=== PATIENT | female | born 1995 | race Caucasian/White ===

== ENCOUNTER 2018-12-04 18:17 | Emergency (ER) | payer MEDICAID, OTHER ==
[~2018-12-04] VITALS: Ht 175.3 cm; Wt 62.0 kg
[~2018-12-04 18:17] MED LIST: ARIP20TA4 PO; GUAI1TBM19 PO; PALI234D IM
[2018-12-04 18:24] VITALS: BP 110/47
--- NOTE | 2018-12-04 18:40 | NUR ---
Pt complains of "seasonal allergy symptoms": itchy eyes, stuffy nose and sore throat. Pt also requests note because she missed a court appointed appointment.
[2018-12-04] MEDS ORDERED: LORA10TA61 PO (18:42)
== END 2018-12-04 18:53 | disposition home or self-care (01) ==
LOC: ER 18:17
DX: J30.2 Other seasonal allergic rhinitis (principal); F15.90 Other stimulant use, unspecified, uncomplicated; Z88.2 Allergy status to sulfonamides; Z88.1 Allergy status to other antibiotic agents; Z88.8 Allergy status to other drugs, medicaments and biological substances; Z79.899 Other long term (current) drug therapy
CPT/HCPCS: 99282

== ENCOUNTER 2019-04-23 13:07 | Emergency (ER) | payer MEDICAID ==
[~2019-04-23] VITALS: Ht 175.3 cm; Wt 59.1 kg
[~2019-04-23 13:07] MED LIST changes: +LORA10TA61 PO
[2019-04-23 13:27] VITALS: BP 117/76
[2019-04-23] MEDS ORDERED: LORazepam 1 MG tablet PO ONE (13:55)
== END 2019-04-23 14:29 | disposition home or self-care (01) ==
LOC: ER 13:07
DX: F15.10 Other stimulant abuse, uncomplicated (principal); F31.9 Bipolar disorder, unspecified; F20.9 Schizophrenia, unspecified; Z88.2 Allergy status to sulfonamides; Z88.1 Allergy status to other antibiotic agents; Z88.8 Allergy status to other drugs, medicaments and biological substances; Z79.899 Other long term (current) drug therapy
CPT/HCPCS: 99284

== ENCOUNTER 2021-06-14 11:42 | Inpatient (IN) | payer MEDICAID ==
[~2021-06-14] VITALS: Ht 170.2 cm; Wt 70.1 kg
[2021-06-14 12:43] LABS: BASOPHILS % (AUTO) 0.3 % (0-1); EOSINOPHILS # (AUTO) 0.2 X10'3 (0-0.9); EOSINOPHILS % (AUTO) 2.3 % (0-6); HEMATOCRIT 38.4 % (35.0-45.0); HEMOGLOBIN 12.6 g/dl (12.0-16.0); LYMPHOCYTES # (AUTO) 2.7 X10'3 (1.1-4.8); LYMPHOCYTES % (AUTO) 29.3 % (21-51); MEAN CORPUSCULAR HEMOGLOBIN 28.4 PG (27.0-31.0); MEAN CORPUSCULAR HGB CONC 32.8 g/dL (33.0-36.5); MEAN CORPUSCULAR VOLUME 86.8 FL (78-98); MONOCYTES % (AUTO) 11.2 % (2-12); NEUTROPHILS # (AUTO) 5.3 X10'3 (1.8-7.7); NEUTROPHILS % (AUTO) 56.9 % (42-75); PLATELET COUNT 364 X10'3 (140-440); RED BLOOD COUNT 4.42 X10'6 (4.20-5.60); RED CELL DISTRIBUTION WIDTH 17.1 % (11.5-14.5); WHITE BLOOD COUNT 9.3 X10'3 (4.5-11.0)
[2021-06-14] MEDS ORDERED: RISP3TAB42 SL (12:47)
[2021-06-14] MEDS ORDERED: OLAN2.5T3 PO (12:47)
[2021-06-14 13:00] LABS: ALANINE AMINOTRANSFERASE 45 U/L (12-78); ALBUMIN 3.7 G/DL (3.4-5.0); ALBUMIN/GLOBULIN RATIO 0.9 (1.1-1.5); ALKALINE PHOSPHATASE 70 IU/L (46-116); ANION GAP 5 (8-16); ASPARTATE AMINO TRANSFERASE 26 U/L (10-37); BILIRUBIN,TOTAL 0.3 MG/DL (0.1-1.0); BLOOD UREA NITROGEN 15 MG/DL (7-18); BUN/CREATININE RATIO 24.6 (6.6-38.0); CALCIUM 8.4 MG/DL (8.5-10.1); CHLORIDE 107 MMOL/L (99-107); CREATININE 0.61 MG/DL (0.40-0.90); ETHANOL < 0.010 GM/DL (0.0-0.010); GLUCOSE 93 MG/DL (70-104); POTASSIUM 3.9 MMOL/L (3.5-5.1); SODIUM 140 MMOL/L (135-145); TOTAL CARBON DIOXIDE 27.8 MMOL/L (24-32); TOTAL PROTEIN 7.8 G/DL (6.4-8.2); eGFR > 90 ML/MIN
[2021-06-14 13:01] LABS: URINE HCG NEGATIVE (NEG)
[2021-06-14 13:09] LABS: URINE AMPHETAMINE SCREEN POSITIVE (Neg); URINE BARBITUATE SCREEN NEGATIVE (Neg); URINE BENZODIAZEPINES SCREEN NEGATIVE (Neg); URINE CANNABINOID SCREEN POSITIVE (Neg); URINE COCAINE SCREEN NEGATIVE (Neg); URINE METHADONE SCREEN NEGATIVE (Neg); URINE OPIATE SCREEN NEGATIVE (Neg); URINE PHENCYCLIDINE SCREEN NEGATIVE (Neg)
[2021-06-14 13:35] LABS: CLARITY,URINE SLIGHTLY CLOUDY (Clear); COLOR,URINE YELLOW (Yellow); GLUCOSE, URINE NEGATIVE (Neg); KETONES,URINE NEGATIVE (Neg); LEUKOCYTE ESTERASE ,URINE NEGATIVE (Neg); NITRITES, URINE NEGATIVE (Neg); OCCULT BLOOD,URINE NEGATIVE (Neg); PROTEIN,URINE NEGATIVE (Neg); UA COLLECTION TYPE CLN CATCH MIDSTREAM; UROBILINOGEN,URINE 0.2 E.U/dL (0.2-1.0)
--- NOTE | 2021-06-14 13:42 | NUR ---
Patient in bed laughing. Sister at bedside. Continue to monitor.
[2021-06-14 13:49] LABS: MUCUS STRANDS FEW /LPF (Neg); SQUAMOUS EPITHELIAL CELL,UR MANY /LPF (FEW)
[2021-06-14 13:51] LABS: BACTERIA,URINE 1+ /HPF (Neg); RBC,URINE 0-2 /HPF (0-2); WBC,URINE 0-4 /HPF (0-4)
[2021-06-14] MEDS ORDERED: OLANZapine 5mg rapidly disint. tablet PO ONE (15:15)
--- NOTE | 2021-06-14 15:28 | NUR ---
Packet sent to [facility]
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
--- NOTE | 2021-06-14 15:47 | NUR ---
Patient lives with grandmother who said who allergies are to Sulfa and Augmentin. GM states she has no allergies to anti-psychotics. Continue to monitor.
[2021-06-14] MEDS ORDERED: diphenhydrAMINE 50 mg/ml inj IM ONE (16:05)
[2021-06-14] MEDS ORDERED: LORazepam 2 mg/ml vial IM ONE (16:05)
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
--- NOTE | 2021-06-14 16:55 | NUR ---
Patient is now sleeping. No distress observed. Continue to monitor.
--- NOTE | 2021-06-14 17:54 | NUR ---
Patient sleeping. RN placed a warm blanket over patient. No distress observed. Continue to monitor.
--- NOTE | 2021-06-14 18:26 | NUR ---
PATIENT REMAINS SLEEPING QUIETLY. SHE HAS SELF REPOSITIONED IN BED. IN VIEW FROM NURSES STATION. FREQUENT ROUNDING FOR PATIENT SAFETY.
--- NOTE | 2021-06-14 18:30 | NUR ---
Note tremayne in [facility] - 06/14/21 at 2118 by [facility]. PATIENT IS SLEEPING, LOW FOWLERS POSITION IN BED. NO DISTRESS.
--- NOTE | 2021-06-14 20:10 | NUR ---
PATIENT HAS REPOSITIONED IN BED. SHE REMAINS SLEEPING.
[2021-06-14] MEDS: risperiDONE 2mg tablet PO SCH (21:00)
[2021-06-14] MEDS: OLANZapine 2.5MG tablet PO SCH (21:00)
--- NOTE | 2021-06-14 21:18 | NUR ---
PATIENT REMAINS SLEEPING QUIETLY. NO DISTRESS.
--- NOTE | 2021-06-14 21:55 | NUR ---
PATIENT IS SLEEPING. SHE HAS REPOSITIONED ONTO HER RIGHT SIDE.
--- NOTE | 2021-06-14 22:45 | NUR ---
PATIENT IS SLEEPING QUIETLY ON HER RIGHT SIDE.
--- NOTE | 2021-06-15 00:35 | NUR ---
PATIENT IS SLEEPING QUIETLY IN BED ON HER RIGHT SIDE.
--- NOTE | 2021-06-15 01:13 | NUR ---
PATIENT SLEEPING, OCCASIONAL SLEEP TALK.
--- NOTE | 2021-06-15 01:28 | NUR ---
PATIENT AWOKE. SHE IS EATING FOOD RAPIDLY. PATIENT REFUSES RX MEDS AND TELLS THIS AMBULATORY NURSE TO "GO AWAY." PATIENT STATES SHE WILL GO TO SLEEP WHEN DONE EATING.
--- NOTE | 2021-06-15 03:19 | NUR ---
PATIENT IS SLEEPING IN A SUPINE POSITION. IN VIEW FROM NURSES STATION. NO DISTRESS.
--- NOTE | 2021-06-15 06:24 | NUR ---
Patient sleeping on left side. No distress observed. Continue to monitor.
[2021-06-15] MEDS: risperiDONE 2mg tablet PO ONE ×2 (08:00→10:46)
[2021-06-15] MEDS: OLANZapine 5mg rapidly disint. tablet PO ONE ×2 (08:00→10:46)
--- NOTE | 2021-06-15 08:20 | NUR ---
Patient eating breakfast. No distress observed. Continue to monitor.
--- NOTE | 2021-06-15 08:27 | NUR ---
Patient got up to use the restroom and didn't have her pants on. RN advised patient to put her pants on before she walks to the BR. Patient called RN a "pb wheeler". Patient cussing all the way back to her room. Continue to monitor.
--- NOTE | 2021-06-15 09:07 | NUR ---
Patient refused meds. Continue to monitor.
--- NOTE | 2021-06-15 11:35 | NUR ---
RN gave patient crackers and milk. "Thank you for my milk you whore!"
--- NOTE | 2021-06-15 12:31 | NUR ---
Patient ambulatory up in room and asking "where are my shoes?". RN states "Your grandmother took them home." Patient responds "Shut up bitch!" Then patient walks to the BR. Continue to monitor.
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
--- NOTE | 2021-06-15 13:17 | NUR ---
Nobody in or near her room "Get out of the room slut!". Patient then pulls her covers over her head and is still. Continue to monitor.
--- NOTE | 2021-06-15 13:25 | NUR ---
Patient completely closed her curtain. RN opened the curtain and advised patient again that we have to be able to see her. Pt responds "You're a faggot you ugly elva!"
--- NOTE | 2021-06-15 15:04 | NUR ---
RN gave patient a cup of boullion, crackers, cheese and juice. RN warned patient that soup was hot. Patient sitting up and eating. No distress at this time. Continue to monitor.
--- NOTE | 2021-06-15 17:10 | NUR ---
Patient keeps getting up and walking to BR without her pants on. Security was called and patient immediately got dressed. Patient still cussing at staff. Continue to monitor.
--- NOTE | 2021-06-15 18:30 | NUR ---
Pt sitting up in bed mumbling to herself. Pt does not cooperate for 1:1 interview and calls RN a bitch.
--- NOTE | 2021-06-15 20:00 | NUR ---
Pt took HS medications without issue.
[2021-06-15] MEDS: risperiDONE 2mg tablet PO SCH (20:03)
[2021-06-15] MEDS: OLANZapine 2.5MG tablet PO SCH (20:04)
--- NOTE | 2021-06-15 20:30 | NUR ---
Pt up to use restroom.
--- NOTE | 2021-06-15 23:30 | NUR ---
Pt requests new brief which is given to her. She changes and gets back into bed.
--- NOTE | 2021-06-16 02:19 | NUR ---
Pt sleeps and stirs occasionally yelling random things like, "I hate Naeem"
--- NOTE | 2021-06-16 03:30 | NUR ---
Pt disposed of wet brief, new one given
--- NOTE | 2021-06-16 05:49 | NUR ---
Pt sleeping on L side, respirations WNL
--- NOTE | 2021-06-16 06:34 | NUR ---
Patient continues to sleep on left side. No distress observed. Continue to monitor.
--- NOTE | 2021-06-16 08:11 | NUR ---
Patient sitting up and eating breakfast. Then patient walked to the bathroom, gave a smile to the male tech and procedeed on. No distress observed. At this time. Continue to monitor.
--- NOTE | 2021-06-16 10:21 | NUR ---
Patient sleeping on right side. No distress observed. Continue to monitor.
--- NOTE | 2021-06-16 12:10 | NUR ---
Patient eating lunch. No distress observed. Continue to monitor.
--- NOTE | 2021-06-16 14:03 | NUR ---
Patient sleeping on her left side. No distress observed. Continue to monitor.
--- NOTE | 2021-06-16 19:26 | NUR ---
The patient has been pleasant but she is very disheveled with her dirty hair sticking up on end. She is disorganized. She ambulated to the restroom with no pants on and had to be redirected.
[2021-06-16] MEDS: risperiDONE 2mg tablet PO SCH (19:35)
[2021-06-16] MEDS: OLANZapine 2.5MG tablet PO SCH (19:35)
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
[2021-06-16] MEDS ORDERED: acetaminophen 325mg tablet PO PRN (22:55)
[2021-06-16] MEDS ORDERED: loperamide 2mg capsule PO PRN (22:55)
[2021-06-16] MEDS ORDERED: magnesium hydroxide 30ml (MOM) UD suspension PO PRN (22:55)
[2021-06-16] MEDS ORDERED: mag hydrox/Alum hydrox/simeth 30ml oral suspension PO PRN (22:55)
[2021-06-17 08:00] VITALS: BP 112/50
[2021-06-17 08:55] LABS: CHOL/HDL RATIO 2.8 (0.00-4.99); CHOLESTEROL 173 MG/DL (0-200); HDL CHOLESTEROL 62 MG/DL (35-60); LDL CHOLESTEROL 91 MG/DL (50-100); TRIGLYCERIDES 61 MG/DL (20-135)
[2021-06-17] MEDS ORDERED: OLANZAPINE 5 MG TABLET PO ONE (10:20)
[2021-06-17] MEDS ORDERED: OLANZapine 2.5MG tablet PO ONE (10:50)
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
[2021-06-17 19:00] VITALS: BP 127/76
[2021-06-17] MEDS: traZODone 50mg tablet PO SCH (19:33)
[2021-06-17] MEDS: risperiDONE 2mg tablet PO SCH (19:33)
[2021-06-17] MEDS: OLANZapine 2.5MG tablet PO SCH (19:35)
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
[2021-06-18 07:10] VITALS: BP 121/62
[2021-06-18] MEDS: OLANZAPINE 5 MG TABLET PO SCH (07:15)
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
[2021-06-18 19:20] VITALS: BP 133/83
[2021-06-18] MEDS: traZODone 50mg tablet PO SCH (19:47)
[2021-06-18] MEDS: OLANZapine 2.5MG tablet PO SCH (19:47)
[2021-06-18] MEDS: risperiDONE 2mg tablet PO SCH (19:48)
[2021-06-18] MEDS: acetaminophen 325mg tablet PO PRN (19:50)
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
[2021-06-19 08:05] VITALS: BP 93/45
[2021-06-19] MEDS: OLANZAPINE 5 MG TABLET PO SCH (08:16)
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
[2021-06-19 19:22] VITALS: BP 124/78
[2021-06-19] MEDS: traZODone 50mg tablet PO SCH (20:20)
[2021-06-19] MEDS: olanzapine 10mg tablet PO SCH (20:20)
[2021-06-19] MEDS: risperiDONE 2mg tablet PO SCH (20:20)
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
[2021-06-20 07:28] VITALS: BP 104/63
[2021-06-20] MEDS: OLANZAPINE 5 MG TABLET PO SCH (07:44)
--- NOTE | 2021-06-20 15:00 | NUR ---
Called Jean Paul's grandmother, Sheree (ph# [phone]), to gather information as Jean Paul was quite disorganized and delusional when typewriter mechanic spoke with her. Sheree reported Jean Paul has been living with her in [place] and she can return to her home upon discharge. Inquired about Jean Paul's [facility] status and she reported Jean Paul had been in a rehab in [place] for about 6 months about a year ago. Jean Paul did not switch her Medi-jovani back to [place] when she returned to [facility] [place]. Sheree reported Jean Paul used to go to [facility] and saw Dr Dong. She noted she had been trying to get Jean Paul to go to [facility] but she was unsuccessful. Called [facility] and requested records. Giselle, [facility], reported she saw that Jean Paul was a 1370 in 2019. VON León
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
--- NOTE | 2021-06-20 15:59 | NUR ---
5250 UPHELD FOR GD
[2021-06-20 20:05] VITALS: BP 111/75
[2021-06-20] MEDS: olanzapine 10mg tablet PO SCH (20:24)
[2021-06-20] MEDS: risperiDONE 2mg tablet PO SCH (20:24)
[2021-06-20] MEDS: traZODone 50mg tablet PO SCH (20:24)
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
[2021-06-21 07:00] VITALS: BP 130/64
[2021-06-21] MEDS: OLANZAPINE 5 MG TABLET PO SCH ×2 (08:17→21:27)
--- NOTE | 2021-06-21 10:15 | NUR ---
Initial: Pt admit for schizophrenia. Currently on a regular diet and eating well, documented with 75-100% PO intake meeting estimated nutrient needs. LBM 06/17, with PRN bowel care available. D/w dietary to send prunes and prune juice with next meal to assist with bowel regularity. Will continue to follow and monitor need for additional nutrition intervention. Recommendations: 1) Continue regular diet 2) Bowel care PRN 3) Weekly scaled weights Addendum: 06/21/21 at [address] Amended: Links added.
--- NOTE | 2021-06-21 15:38 | NUR ---
Group Art Tx, Continued: Patient was able to follow and complete the activities as directed. A few times pt. would loose her focus and begin loudly interacting with a peer. She was easily re-directed and was able to benefit from listening to others share, AEB her interest and comments. Patients artworks were expansive and colorful. Her writing was disorganized lacking a reality based content. Pt. was able to remain in group for the entire session. *Please refer to [facility] for a complete overview of todays session. Melissa Allison MA, CARE GIVER #[id number] [facility] Art Therapist Addendum: 06/21/21 at 1544 by Melissa Allison SS Amended: Links added.
[2021-06-21] MEDS: hydrOXYzine 25 MG tablet PO PRN (16:12)
[2021-06-21] MEDS: OLANZAPINE 5 MG TABLET PO PRN (16:13)
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
[2021-06-21 20:34] VITALS: BP 125/64
[2021-06-21] MEDS: traZODone 50mg tablet PO SCH (21:23)
[2021-06-21] MEDS: risperiDONE 0.5mg tablet PO SCH (21:27)
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
[2021-06-22 07:40] VITALS: BP 102/48
[2021-06-22] MEDS: risperiDONE 0.5mg tablet PO SCH ×2 (07:56→20:40)
[2021-06-22] MEDS: OLANZAPINE 5 MG TABLET PO SCH ×2 (07:56→20:40)
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
--- NOTE | 2021-06-22 17:31 | NUR ---
Group Art Tx, Continued: Patient entered the group room and stayed for the initial relaxation and directives for the activity. Patient quickly opted not to do group, seemingly aware that the activity was 'not for me". Patient was able to leave the session appropriately *Please refer to [facility] for a complete overview of todays session. Melissa Allison MA, ARMORED SERVICE TECHNICIAN #[id number] [facility] Art Therapist Addendum: 06/22/21 at 1732 by Melissa Allison SS Amended: Links added.
[2021-06-22 20:00] VITALS: BP 121/67
[2021-06-22] MEDS: traZODone 50mg tablet PO SCH (20:40)
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
[2021-06-23 07:35] VITALS: BP 93/50
[2021-06-23] MEDS: OLANZAPINE 5 MG TABLET PO SCH ×2 (07:45→22:11)
[2021-06-23] MEDS: risperiDONE 0.5mg tablet PO SCH ×2 (07:45→22:12)
[2021-06-23] MEDS: hydrOXYzine 25 MG tablet PO PRN (12:25)
[2021-06-23] MEDS: OLANZAPINE 5 MG TABLET PO PRN (12:25)
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
--- NOTE | 2021-06-23 15:14 | NUR ---
1:1 This below named therapist met with the patient at her request, to explore some ideas for leisure time activities. Patient was interested in doing some independent drawing and a coloring page of her choosing. Patient was provided with paper and art markers. It was noted, that patient lost her interest in her projects having a 5-10 minute attention span. Melissa Allison MA, [facility] #[id number] [facility] Art Therapist Addendum: 06/23/21 at 1516 by Melissa Allison SS Amended: Links added.
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
[2021-06-23 19:00] VITALS: BP 126/83
[2021-06-23] MEDS: traZODone 50mg tablet PO SCH (22:11)
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
[2021-06-24] MEDS: risperiDONE 0.5mg tablet PO SCH ×2 (07:29→20:38)
[2021-06-24] MEDS: OLANZAPINE 5 MG TABLET PO SCH ×2 (07:29→20:37)
[2021-06-24 07:34] VITALS: BP 118/70
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
[2021-06-24] MEDS: hydrOXYzine 25 MG tablet PO PRN (11:48)
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
[2021-06-24 20:08] VITALS: BP 135/78
[2021-06-24] MEDS: traZODone 50mg tablet PO SCH (20:38)
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
[2021-06-25 07:34] VITALS: BP 101/67
[2021-06-25] MEDS: OLANZAPINE 5 MG TABLET PO SCH ×2 (08:18→20:47)
[2021-06-25] MEDS: risperiDONE 0.5mg tablet PO SCH ×2 (08:18→20:47)
[2021-06-25] MEDS: hydrOXYzine 25 MG tablet PO PRN (14:47)
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
[2021-06-25 19:03] VITALS: BP 108/62
[2021-06-25] MEDS: traZODone 50mg tablet PO SCH (20:47)
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
[2021-06-26 07:27] VITALS: BP 91/47
[2021-06-26] MEDS: OLANZAPINE 5 MG TABLET PO SCH ×2 (07:53→20:57)
[2021-06-26] MEDS: risperiDONE 0.5mg tablet PO SCH ×3 (07:53→20:57)
--- NOTE | 2021-06-26 07:56 | NUR ---
[place] REFUSED AM DOSE OF RISPERIDONE. SHE STATES, "IT IS BLOOD I'M NOT A CARNIVORE.'" SHE WENT ON TO DESCRIBE THE COLOR IS RED AND ON AND ON WITH A "GROSS" DESCRIPTION.
[2021-06-26] MEDS: hydrOXYzine 25 MG tablet PO PRN ×2 (08:38→16:46)
[2021-06-26] MEDS: OLANZAPINE 5 MG TABLET PO PRN ×2 (08:46→16:46)
--- NOTE | 2021-06-26 11:52 | NUR ---
PT DECIDED TO TAKE THE RISPERIDONE. PER RAINER BERNAL OKAY TO GIVE NOW.
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
--- NOTE | 2021-06-26 16:45 | NUR ---
PT GIVEN ATARAX 50MG AND OLANZAPINE 5MG FOR PSYCHOSIS. PT IS HAVING VH OF VARIOUS FAMILY MEMBERS. SHE IS CALLING PEOPLE BY OTHER NAMES AND INSISTING STAFF ARE HER FAMILY MEMBERS. WHEN ASKED "WHERE ARE YOU?" SHE RESPONDE, "[facility]." THEN SHE SAID, "[facility]."
[2021-06-26 19:43] VITALS: BP 117/55
[2021-06-26] MEDS: traZODone 50mg tablet PO SCH (20:57)
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
[2021-06-27 08:00] VITALS: BP 137/54
[2021-06-27] MEDS: risperiDONE 0.5mg tablet PO SCH ×2 (08:10→20:26)
[2021-06-27] MEDS: OLANZAPINE 5 MG TABLET PO SCH ×2 (08:11→20:26)
--- NOTE | 2021-06-27 09:35 | NUR ---
Reassessment: Pt currently on regular diet and eating well, documented with ~100% PO intake meeting estimated nutrient needs. LBM 2, with PRN bowel care available. Will continue to follow and monitor need for nutrition intervention. Addendum: 06/27/21 at [address] Amended: Links added. Addendum: 06/27/21 at 0939 by Renetta Byrd Intern RD Reassessment: Pt currently on regular diet and eating well, documented with ~100% PO intake meeting estimated nutrient needs. LBM 2, with PRN bowel care available. Will continue to follow and monitor need for nutrition intervention. Recommendations: 1) Continue regular diet 2) Bowel care PRN 3) Weekly scaled weights Addendum: 06/27/21 at [address] CHARMAINE has reviewed and approves of above note.
[2021-06-27] MEDS: NICOTINE POLACRILEX 2 MG LOZENGE BC PRN (12:22)
[2021-06-27] MEDS: hydrOXYzine 25 MG tablet PO PRN (13:02)
--- NOTE | 2021-06-27 13:24 | NUR ---
Attempted to reach Jean Paul's grandmother, Sheree (ph# [phone]), to see if she was able to make any progress switching Jean Paul's Medi-jovani for her. Unable to leave a message. Will try again later. VON León
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
[2021-06-27 20:18] VITALS: BP 120/49
[2021-06-27] MEDS: traZODone 50mg tablet PO SCH (20:26)
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
[2021-06-28 08:00] VITALS: BP 100/53
[2021-06-28] MEDS: OLANZAPINE 5 MG TABLET PO SCH ×2 (08:32→20:16)
[2021-06-28] MEDS: risperiDONE 0.5mg tablet PO SCH ×3 (08:34→21:00)
[2021-06-28] MEDS: hydrOXYzine 25 MG tablet PO PRN ×2 (09:22→15:52)
[2021-06-28] MEDS: NICOTINE POLACRILEX 2 MG LOZENGE BC PRN (10:12)
--- NOTE | 2021-06-28 15:39 | NUR ---
1:1 This below named therapist, met briefly with his patient to provide an expressive art activity using two templates. The patient was asked to complete in preparation for a mural making activity tomorrow. Patient took the handouts putting them on her night stand. Patient had been sleeping and remained unmotivated to leave her room to do an activity. Will follow up 06/30/2021. Melissa Allison MA, COLOR WORKER #[id number] [facility] Art Therapist
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
[2021-06-28] MEDS: acetaminophen 325mg tablet PO PRN (17:49)
[2021-06-28 19:06] VITALS: BP 104/62
[2021-06-28] MEDS: traZODone 50mg tablet PO SCH (20:16)
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
[2021-06-29 07:32] VITALS: BP 132/76
[2021-06-29] MEDS: OLANZAPINE 5 MG TABLET PO SCH ×2 (08:30→20:00)
[2021-06-29] MEDS: risperiDONE 2mg tablet PO SCH (08:31)
[2021-06-29] MEDS: hydrOXYzine 25 MG tablet PO PRN ×2 (09:22→16:19)
[2021-06-29] MEDS: NICOTINE POLACRILEX 2 MG LOZENGE BC PRN (17:07)
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
[2021-06-29] MEDS: OLANZAPINE 5 MG TABLET PO PRN (18:08)
[2021-06-29] MEDS ORDERED: LORazepam 1 MG tablet PO ONE (18:25)
[2021-06-29] MEDS ORDERED: diphenhydrAMINE 25mg capsule PO ONE (18:25)
[2021-06-29] MEDS ORDERED: haloperidol 5mg tablet PO ONE (18:25)
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
[2021-06-29 20:00] VITALS: BP 139/85
[2021-06-29] MEDS: traZODone 50mg tablet PO SCH (20:00)
[2021-06-29] MEDS: risperiDONE 0.5mg tablet PO SCH (20:42)
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
[2021-06-30 08:00] VITALS: BP 109/60
[2021-06-30] MEDS: OLANZAPINE 5 MG TABLET PO SCH ×2 (08:10→20:28)
[2021-06-30] MEDS: risperiDONE 2mg tablet PO SCH (08:10)
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
[2021-06-30 19:00] VITALS: BP 132/71
[2021-06-30] MEDS: traZODone 50mg tablet PO SCH (20:27)
[2021-06-30] MEDS: risperiDONE 0.5mg tablet PO SCH (20:28)
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
--- NOTE | 2021-07-01 06:51 | NUR ---
Called Jean Paul's grandmother, Sheree (ph# [phone]) yesterday to inquire if she had been able to switch Jean Paul's Medi-jovani. She reported she still had not done so. She called back and left a message stating she had called [employer] [facility] [employer] and left messages trying to switch her Med[employer]-j[employer]. Ideally Jean Paul needs to call, however, she is not currently able to do so. VON León
[2021-07-01 07:09] VITALS: BP 128/78
[2021-07-01] MEDS: OLANZAPINE 5 MG TABLET PO SCH (07:59)
[2021-07-01] MEDS: risperiDONE 2mg tablet PO SCH (07:59)
[2021-07-01] MEDS: hydrOXYzine 25 MG tablet PO PRN (15:29)
[2021-07-01] MEDS: OLANZAPINE 5 MG TABLET PO PRN (16:09)
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
[2021-07-01] MEDS: acetaminophen 325mg tablet PO PRN (17:35)
[2021-07-01 20:00] VITALS: BP 132/79
[2021-07-01] MEDS ORDERED: OLANZAPINE 5 MG TABLET PO SCH (20:00)
[2021-07-01] MEDS: risperiDONE 0.5mg tablet PO SCH (20:29)
[2021-07-01] MEDS: traZODone 50mg tablet PO SCH (20:30)
--- NOTE | 2021-07-02 00:55 | NUR ---
Nursing Progress Note: Legal hold: 5250 Client on involuntary status for GD Report received from LEONID Ledbetter with use of SBAR Why they are here: Per the ER chart pt has a hx of bipolar schizophrenia and substance use disorder. ER toxicology was + methamphetamine and + cannabis. PT reportedly lives with her grandmother but is using drugs and was found naked in the street by family. She has a air intelligence officer who suggested she be brought to the hospital for help. Per notes pt was on Zyprexa and Risperdal but stopped taking these. Her grandmother reported that Jean Paul has not taken a shower or changed her clothes in 4 months and has been carrying around raw meat and thinks it is her baby. Assessment What has happened this shift: Patient lying in bed at shift change. 1:1 pt denies A/V H, pt talks in a soft voice with short answers and isolates to room for entire evening. Pt ate snack in room. Pt took meds at evening med pass w/o complications. Pt went to sleep shortly after. SI/HI: Denies A/VH: Denies Sleep:See sleep hours ADL's: Independent with prompting Group attendance: NA Were Meds taken: Yes, with prompting Any med S/E: None observed or reported Mental Status Exam Appearance: Casual in scrubs, showered today Eye contact: Good Behavior: tired Speech: Clear,soft spoken, short responses Mood: tired Affect: Animated, child-like Thought process: Extremely disorganized, flight of ideas, delusional, tangential Thought Content:sleep Cognition: A/O X 1 to self Insight: Poor Judgment: Poor Interventions PRN's used: none Therapeutic interventions: 1:1 assessment, therapeutic communication, active listening, medication administration/education/monitoring, provided simple, clear directions, behavior monitoring and intervention; frequent reality orientation, distraction, and redirection, positive reinforcement, and Q 15 minute safety checks. Restraints/seclusion/emergency medication: None Justification of Continued Inpatient Treatment: Pt continues to be gravely disabled. She is extremely disorganized and is not even sure who she is at times. She is delusional and impulsive. She needs further medication adjustment and monitoring in a safe and therapeutic environment.
[2021-07-02 07:45] VITALS: BP 97/70
[2021-07-02] MEDS: risperiDONE 2mg tablet PO SCH (08:13)
[2021-07-02] MEDS: hydrOXYzine 25 MG tablet PO PRN (10:16)
[2021-07-02] MEDS: OLANZAPINE 5 MG TABLET PO PRN (14:16)
[2021-07-02] MEDS ORDERED: benztropine 1mg tablet PO ONE (14:25)
[2021-07-02] MEDS: NICOTINE POLACRILEX 2 MG LOZENGE BC PRN (14:43)
[2021-07-02] MEDS ORDERED: cloNIDine 0.1 mg tablet PO ONE (15:50)
[2021-07-02] MEDS ORDERED: OLANZapine 5mg rapidly disint. tablet PO ONE (15:50)
[2021-07-02] MEDS ORDERED: propranolol 10mg tablet PO ONE (15:55)
[2021-07-02 16:04] VITALS: BP 147/78
--- NOTE | 2021-07-02 17:04 | NUR ---
Nursing Progress Note Legal hold: 5250 Client on involuntary status for GD Report received from RN with use of SBAR Why they are here: Per the ER chart pt has a hx of bipolar schizophrenia and substance use disorder. ER toxicology was + methamphetamine and + cannabis. PT reportedly lives with her grandmother but is using drugs and was found naked in the street by family. She has a digital marketing officer who suggested she be brought to the hospital for help. Per notes pt was on Zyprexa and Risperdal but stopped taking these. Her grandmother reported that Jean Paul has not taken a shower or changed her clothes in 4 months and has been carrying around raw meat and thinks it is her baby. Assessment What has happened this shift: Received Pt in bed sleeping w/o distress at the beginning of the shift. Pt woke and was cooperative with vitals and returned to sleep. Pt took AM meds w/o issue and ate breakfast in her room. Pt pleasant and cooperative for AM assessments and was reading the bible in bed. She continues to speak in a childish manner and state that she is 1 y/o. Jean Paul used the phone multiple times today. Pt increasingly asked and became intrusive about leaving the unit. Pt became restless and irritable in afternoon, wanting to leave and go home. Pt given PRN Atarax, Zyprexa and CogentinX1. Pt continued to be agitated, restless and impulsive. Vitals @1600 P-114, BP-147/78, T-98, R-16, O2-96%. PA ordered Zyprexa 5mg and Inderal 10mg. Pt has appeared to calm a little and even napped for 15 min. as of the writing of this note. SI/HI: Denies A/VH: Denies but appears to be responding to internal stimuli Sleep: Napped in AM ADL's: Independent Group attendance: NA Were Meds taken: Yes Any med S/E: None observed or reported Mental Status Exam Appearance: Casual in scrubs, showered today Eye contact: Good Behavior: Extremely disorganized, hypomanic Speech: Clear, audible, pressured, hyper verbal at times Mood: Elevated Affect: Animated, child-like Thought process: Extremely disorganized, delusional, tangential Thought Content: Wanting to go home Cognition: A/O X 1 Insight: Poor Judgment: Poor Interventions PRN's used: None Therapeutic interventions: 1:1 assessment, therapeutic communication, active listening, medication administration/education/monitoring, provided simple, clear directions, behavior monitoring and intervention; frequent reality orientation, distraction, and redirection, positive reinforcement, and Q 15 minute safety checks. Restraints/seclusion/emergency medication: None Justification of Continued Inpatient Treatment: Pt continues to be gravely disabled. She is extremely disorganized and is not even sure who she is at times. She is delusional and impulsive. She needs further medication adjustment and monitoring in a safe and therapeutic environment.
[2021-07-02 18:39] VITALS: BP 113/70
[2021-07-02] MEDS ORDERED: guanFACINE 1 mg tablet PO SCH (20:00)
[2021-07-02] MEDS: traZODone 50mg tablet PO SCH (20:02)
[2021-07-02] MEDS: risperiDONE 0.5mg tablet PO SCH (20:03)
[2021-07-02] MEDS: benztropine 1mg tablet PO SCH (20:03)
--- NOTE | 2021-07-03 01:28 | NUR ---
Nursing Progress Note Legal hold: 5250 Client on involuntary status for GD Report received from RN with use of SBAR Why they are here: Per the ER chart pt has a hx of bipolar schizophrenia and substance use disorder. ER toxicology was + methamphetamine and + cannabis. PT reportedly lives with her grandmother but is using drugs and was found naked in the street by family. She has a parcel post officer who suggested she be brought to the hospital for help. Per notes pt was on Zyprexa and Risperdal but stopped taking these. Her grandmother reported that Jean Paul has not taken a shower or changed her clothes in 4 months and has been carrying around raw meat and thinks it is her baby. Assessment What has happened this shift: Pt in room at beginning of shift change. Pt very lively today and communicative. Pt asked to paint her nails and put perfume on. Pt was reminded we don't have perfume and nail estonian will need to be supervised. Pt asked for water. Pt denies A/V H, Pt ate snack with cohorts in community room and talked with other pts in hallway at times. Pt took evening meds w/o complications and went to sleep shortly after. SI/HI: Denies A/VH: Denies but appears to be responding to internal stimuli Sleep: See sleep hours ADL's: Independent Group attendance: NA Were Meds taken: Yes Any med S/E: None observed or reported Mental Status Exam Appearance: Casual in scrubs, showered today Eye contact: Good Behavior: Extremely disorganized, hypomanic Speech: Clear, audible Mood: Elevated Affect: Animated, child-like Thought process: Extremely disorganized, delusional, tangential Thought Content: asking for things Cognition: A/O X 1 Insight: Poor Judgment: Poor Interventions PRN's used: None Therapeutic interventions: 1:1 assessment, therapeutic communication, active listening, medication administration/education/monitoring, provided simple, clear directions, behavior monitoring and intervention; frequent reality orientation, distraction, and redirection, positive reinforcement, and Q 15 minute safety checks. Restraints/seclusion/emergency medication: None Justification of Continued Inpatient Treatment: Pt continues to be gravely disabled. She is extremely disorganized and is not even sure who she is at times. She is delusional and impulsive. She needs further medication adjustment and monitoring in a safe and therapeutic environment.
[2021-07-03] MEDS: benztropine 1mg tablet PO SCH ×2 (07:48→20:45)
[2021-07-03] MEDS: risperiDONE 0.5mg tablet PO SCH ×2 (07:49→20:45)
[2021-07-03 08:00] VITALS: BP 110/53
[2021-07-03] MEDS: hydrOXYzine 25 MG tablet PO PRN (08:28)
--- NOTE | 2021-07-03 14:39 | NUR ---
Nursing Progress Note Legal hold: 5250 Client on involuntary status for GD Report received from RN with use of SBAR Why they are here: Per the ER chart pt has a hx of bipolar schizophrenia and substance use disorder. ER toxicology was + methamphetamine and + cannabis. PT reportedly lives with her grandmother but is using drugs and was found naked in the street by family. She has a chief strategy officer who suggested she be brought to the hospital for help. Per notes pt was on Zyprexa and Risperdal but stopped taking these. Her grandmother reported that Jean Paul has not taken a shower or changed her clothes in 4 months and has been carrying around raw meat and thinks it is her baby. Assessment What has happened this shift: Patient was awake at change of shift. Patient was pleasant but she was bored. Patient keeps on talking about going home. Patient is social with staff and peers. Patient does speak with a childlike voice. Patient still believes she is 1 years old. Patient denies suicidal. Patient denies audio/visual hallucinations. When patient is laying in bed it appears patient is responding to internal stimuli. Patient is being placed on a 5270 today. Patient was placed on Tenex yesterday and has been acting much more appropriately. No anger or outbursts today. SI/HI: Denies A/VH: Denies but appears to be responding to internal stimuli Sleep: Cat naps ADL's: Independent Group attendance: NA Were Meds taken: Yes Any med S/E: None observed or reported Mental Status Exam Appearance: Casual in scrubs Eye contact: Good Behavior: disorganized, tangential Speech: Clear, audible, Mood: Elevated Affect: Animated, child-like Thought process: disorganized, delusional, tangential Thought Content: Wanting to go home Cognition: A/O X 1 Insight: Poor Judgment: Poor Interventions PRN's used: None Therapeutic interventions: 1:1 assessment, therapeutic communication, active listening, medication administration/education/monitoring, provided simple, clear directions, behavior monitoring and intervention; frequent reality orientation, distraction, and redirection, positive reinforcement, and Q 15 minute safety checks. Restraints/seclusion/emergency medication: None Justification of Continued Inpatient Treatment: Pt continues to be gravely disabled. She is extremely disorganized and is not even sure who she is at times. She is delusional and impulsive. She needs further medication adjustment and monitoring in a safe and therapeutic environment.
[2021-07-03 19:00] VITALS: BP 89/60
[2021-07-03] MEDS: traZODone 50mg tablet PO SCH (20:45)
--- NOTE | 2021-07-04 01:23 | NUR ---
Nursing Progress Note Legal hold: 5250 Client on involuntary status for GD Report received from RN with use of SBAR Why they are here: Per the ER chart pt has a hx of bipolar schizophrenia and substance use disorder. ER toxicology was + methamphetamine and + cannabis. PT reportedly lives with her grandmother but is using drugs and was found naked in the street by family. She has a community chest officer who suggested she be brought to the hospital for help. Per notes pt was on Zyprexa and Risperdal but stopped taking these. Her grandmother reported that Jean Paul has not taken a shower or changed her clothes in 4 months and has been carrying around raw meat and thinks it is her baby. Assessment What has happened this shift: Patient in bed at shift change sitting on the edge. Patient is nice upon greeting and asks for a diaper. It is explained to pt that we do not wear diapers here that she will need to wear underwear and use the toilet. The pt agrees and goes back to her room. The pt asks for a snack an da sandwich and chips are provided for her. Pt take meds at evening med pass w/o complications. Later on pt noted sleeping nude in bed, pt asked to put on clothing and pt obliged donning a scrub top and went back to sleep SI/HI: Denies A/VH: Denies but appears to be responding to internal stimuli Sleep: Cat naps ADL's: Independent Group attendance: NA Were Meds taken: Yes Any med S/E: None observed or reported Mental Status Exam Appearance: Casual in scrubs Eye contact: Good Behavior: disorganized, tangential Speech: Clear, audible, Mood: Elevated Affect: Animated, child-like Thought process: disorganized, delusional, tangential Thought Content: Wanting to go home Cognition: A/O X 1 Insight: Poor Judgment: Poor Interventions PRN's used: None Therapeutic interventions: 1:1 assessment, therapeutic communication, active listening, medication administration/education/monitoring, provided simple, clear directions, behavior monitoring and intervention; frequent reality orientation, distraction, and redirection, positive reinforcement, and Q 15 minute safety checks. Restraints/seclusion/emergency medication: None Justification of Continued Inpatient Treatment: Pt continues to be gravely disabled. She is extremely disorganized and is not even sure who she is at times. She is delusional and impulsive. She needs further medication adjustment and monitoring in a safe and therapeutic environment.
[2021-07-04 08:00] VITALS: BP 104/62
[2021-07-04] MEDS: guanFACINE 1 mg tablet PO SCH ×2 (08:00→20:00)
[2021-07-04] MEDS ORDERED: guanFACINE 1 mg tablet PO SCH (08:00)
[2021-07-04] MEDS: risperiDONE 0.5mg tablet PO SCH ×2 (08:03→20:27)
[2021-07-04] MEDS: benztropine 1mg tablet PO SCH ×2 (08:03→20:28)
--- NOTE | 2021-07-04 08:05 | NUR ---
Med Note: Unable to give Tenex due to BP 104/62.
[2021-07-04 09:07] VITALS: BP 104/62
--- NOTE | 2021-07-04 12:57 | NUR ---
Nursing Progress Note Legal hold: 5250 Client on involuntary status for GD Report received from RN with use of SBAR Why they are here: Per the ER chart pt has a hx of bipolar schizophrenia and substance use disorder. ER toxicology was + methamphetamine and + cannabis. PT reportedly lives with her grandmother but is using drugs and was found naked in the street by family. She has a contracts officer who suggested she be brought to the hospital for help. Per notes pt was on Zyprexa and Risperdal but stopped taking these. Her grandmother reported that Jean Paul has not taken a shower or changed her clothes in 4 months and has been carrying around raw meat and thinks it is her baby. Assessment What has happened this shift: Patient was asleep at change of shift and up soon after. Patient calm and childlike voice. Patient denies suicidal/homicidal ideation. Patient is focused on going home and on getting a hot chocolate. Patient follows instructions but appears to forget the rules as she keeps coming into the nurses station. Patient is redirectable. Patient went to group today. Patient was unable to take her Tenex due to her systolic BP below 110. Patient asks for a diaper but staff keeps reminding patient that she is potty trained. No outbursts as of this writing. Patient talks about going home. SI/HI: Denies A/VH: Denies Sleep: Cat naps ADL's: Independent Group attendance: Yes Were Meds taken: Yes Any med S/E: None observed or reported Mental Status Exam Appearance: Casual in scrubs Eye contact: Good Behavior: disorganized Speech: Clear, audible, Mood: Elevated Affect: Animated, child-like Thought process: disorganized, delusional Thought Content: Wanting to go home Cognition: A/O X 1 Insight: Poor Judgment: Poor Interventions PRN's used: None Therapeutic interventions: 1:1 assessment, therapeutic communication, active listening, medication administration/education/monitoring, provided simple, clear directions, behavior monitoring and intervention; frequent reality orientation, distraction, and redirection, positive reinforcement, and Q 15 minute safety checks. Restraints/seclusion/emergency medication: None Justification of Continued Inpatient Treatment: Pt continues to be gravely disabled. She is extremely disorganized and is not even sure who she is at times. She is delusional and impulsive. She needs further medication adjustment and monitoring in a safe and therapeutic environment.
[2021-07-04] MEDS: hydrOXYzine 25 MG tablet PO PRN (14:01)
[2021-07-04] MEDS: OLANZAPINE 5 MG TABLET PO PRN (14:01)
--- NOTE | 2021-07-04 14:04 | NUR ---
[facility] Jean Paul currently has [facility] despite living in [facility]. Her grandmother (Sheree ph# [phone]) tried to call and change it to [facility] and was unable to do so. Met with Jean Paul to discuss her [facility] and why it needs to get changed to [facility] (for continued mental health treatment). She reported she wants it to stay with [facility]. She would not let internal communications writer assist her with changing to [place]. Called Sheree back to let her know internal communications writer was unsuccessful with assisting Jean Paul with changing her [facility]. She reported she will continue to try to do so. VON León
--- NOTE | 2021-07-04 14:09 | NUR ---
RN Addendum: Patient slightly agitated, cussing and speaking loudly. RN gave Zyprexa 10 mg and Atarax 50 mg. Patient took meds without incident. Continue to monitor.
--- NOTE | 2021-07-04 14:51 | NUR ---
Pt. attended group today. Today, being Valentin we did an creative mural with different [place] theme coloring pages and also utilized magazine cut outs to add to the mural. They were instructed to place the names of the people they love on the hearts if they wanted to and add whatever colors or words they wanted to add. Pt. engaged in the group well. She wrote down MONEY on her hearts and attempted to explain that she loves money. Her thought process was disorganized and she had a hard time staying on the topic. She would intrusive thoughts that she would blurt out that would be loosely associated with the topic at hand. She did pick out pictures she like and was able to to say why she like them appropriately. She was able to joke around a bit as well. Her demeanor was calm and pleasant. She was able to take redirection well as there were times she would interrupt when others were speaking. She shared a picture of a hold in the ground that she found interesting that she described as God's butt hole. This brought laughter to the group and she seemed to enjoy that. She stayed for the entirety of the group and received a ticket which she was excited about. Sonali Child LCSW
--- NOTE | 2021-07-04 15:43 | NUR ---
5270 UPHELD FOR GD
[2021-07-04 19:29] VITALS: BP 130/74
[2021-07-04] MEDS: traZODone 50mg tablet PO SCH (20:27)
[2021-07-04] MEDS: divalproex sod 250mg ER (24-hour) tablet PO SCH (21:00)
--- NOTE | 2021-07-05 01:20 | NUR ---
Nursing Progress Note Legal hold: 5250 Client on involuntary status for GD Report received from RN with use of SBAR Why they are here: Per the ER chart pt has a hx of bipolar schizophrenia and substance use disorder. ER toxicology was + methamphetamine and + cannabis. PT reportedly lives with her grandmother but is using drugs and was found naked in the street by family. She has a security officer supervisor who suggested she be brought to the hospital for help. Per notes pt was on Zyprexa and Risperdal but stopped taking these. Her grandmother reported that Jean Paul has not taken a shower or changed her clothes in 4 months and has been carrying around raw meat and thinks it is her baby. Assessment What has happened this shift: Pt walking in hallway at shift change. Pt asked for a diaper at beginning of shift , pt was reminded that she doesn't use diapers and needs to use the toilet. Pt went to room to lie down.Pt denies A/V H. Pt states that she had a good day and asked for chocolate. Pt asked for snack at snack time. Pt took evening meds w/o complaint. Pt was unable to take tannex due to SBP being under 110. Pt went to sleep shortly after. SI/HI: Denies A/VH: Denies Sleep: See sleep hours ADL's: Independent Group attendance: No group in the evenings Were Meds taken: Yes Any med S/E: None observed or reported Mental Status Exam Appearance: Casual in scrubs Eye contact: Good Behavior: disorganized Speech: Clear, audible, Mood: Elevated Affect: Animated, child-like Thought process: disorganized, delusional Thought Content: Wanting to go home Cognition: A/O X 1 Insight: Poor Judgment: Poor Interventions PRN's used: None Therapeutic interventions: 1:1 assessment, therapeutic communication, active listening, medication administration/education/monitoring, provided simple, clear directions, behavior monitoring and intervention; frequent reality orientation, distraction, and redirection, positive reinforcement, and Q 15 minute safety checks. Restraints/seclusion/emergency medication: None Justification of Continued Inpatient Treatment: Pt continues to be gravely disabled. She is extremely disorganized and is not even sure who she is at times. She is delusional and impulsive. She needs further medication adjustment and monitoring in a safe and therapeutic environment.
[2021-07-05 08:00] VITALS: BP 98/53
[2021-07-05] MEDS: guanFACINE 1 mg tablet PO SCH ×2 (08:00→20:17)
[2021-07-05] MEDS: risperiDONE 0.5mg tablet PO SCH ×2 (08:36→20:16)
[2021-07-05] MEDS: benztropine 1mg tablet PO SCH ×2 (08:36→20:17)
--- NOTE | 2021-07-05 08:37 | NUR ---
Pt. attended group today. Todays group was about the difference between Growth Mindset vs. Fixed Mindset. We learned about the differences and then discussed what aspect of developing a growth mindset they wanted to work on. Pt. came into the group snf through the group but joined right in. She shared things she wants to hold onto in her life are [employer] and a glue stick. Her thought content contains delusional content and disorganized thoughts. Her thoughts quickly will tangent into loose associations but she is amenable to redirection. Her demeanor is pleasant and calm. She appears to enjoys socializing with her peers. Sonali Child, ORAL HYGIENIST
--- NOTE | 2021-07-05 09:58 | NUR ---
Reassessment: Pt currently on regular diet and eating well, documented with ~100% PO intake meeting estimated nutrient needs. [facility] 06/30, with PRN bowel care available. Will continue to follow and monitor need for nutrition intervention. Recommendations: 1) Continue regular diet 2) Bowel care PRN 3) Weekly scaled weights Addendum: 07/05/21 at [address] Amended: Links added. Addendum: 07/05/21 at [address] I have reviewed assessment by social media intern
[2021-07-05] MEDS: hydrOXYzine 25 MG tablet PO PRN (10:02)
--- NOTE | 2021-07-05 17:19 | NUR ---
Nursing Progress Note Legal hold: 5270 Client on involuntary status for GD Report received from DOTTIE Gold with use of SBAR Why they are here: Per the ER chart pt has a hx of bipolar schizophrenia and substance use disorder. ER toxicology was + methamphetamine and + cannabis. PT reportedly lives with her grandmother but is using drugs and was found naked in the street by family. She has a program officer who suggested she be brought to the hospital for help. Per notes pt was on Zyprexa and Risperdal but stopped taking these. Her grandmother reported that Jean Paul has not taken a shower or changed her clothes in 4 months and has been carrying around raw meat and thinks it is her baby. What happened today: Assessment What has happened this shift: Received patient while she was sleeping in bed. Patient awoke at approximately 0735, and was talking to other peers. Patient reports Im feeling great, when asked how she was today. 1:1 Patient Assessment & Interview completed with patient. Patient took po AM medications that were ordered, with the exception of Tenex, which was held because her BP was low at 98/63. Patient took am prescribed medications, then requested Atarax at 1000 d/t increased anxiety at this time. Patient attended afternoon Group Meeting and ambulated frequently throughout the hallways greeting peers and making pleasant statements. Patient has had to be told many times today to stay out of other patient's rooms today. SI/HI: Denies A/VH: Denies Sleep: 9.50 hours ADL's: Independent, Showered Today. Group attendance: Did not attend AM Group Meeting. Attended Afternoon Group Meeting. Were Meds taken: Yes, without hesitation. Any med S/E: None observed or reported Mental Status Exam Appearance: Tall female with bangs in front and a shaved head in the back, with blue jeans & pink sweatshirt on. Eye contact: Good Behavior: Disorganized Speech: Clear, audible, Mood: Elevated Affect: Animated, child-like Thought process: Disorganized, Delusional Thought Content: Wanting to go home Cognition: A/O X 3 Insight: Poor Judgment: Poor Interventions PRN's used: Atarax at 10:00. Therapeutic interventions: 1:1 assessment, therapeutic communication, active listening, medication administration/education/monitoring, provided simple, clear directions, behavior monitoring and intervention; frequent reality orientation, distraction, and redirection, positive reinforcement, and Q 15 minute safety checks. Restraints/seclusion/emergency medication: None Justification of Continued Inpatient Treatment: Pt continues to be gravely disabled. She is extremely disorganized and is not even sure who she is at times. She is delusional and impulsive. She needs further medication adjustment and monitoring in a safe and therapeutic environment.
--- NOTE | 2021-07-05 17:40 | NUR ---
Group Art Tx. Continued: Patient was able to remain in group and participate for the entire session.There were times that the patient would make statements that were delusional in nature, however, she seemed to understand what she was saying and seemed content to be participating in the group. *Please refer to [employer] for a complete overview of todays session. Melissa Allison MA, LINUX NETWORK ENGINEER #[id number] [facility] Art Therapist Addendum: 07/05/21 at 1742 by Melissa Allison SS Amended: Links added.
[2021-07-05 19:29] VITALS: BP 125/77
[2021-07-05] MEDS: traZODone 50mg tablet PO SCH (20:17)
[2021-07-05] MEDS: divalproex sod 250mg ER (24-hour) tablet PO SCH (20:17)
--- NOTE | 2021-07-06 00:33 | NUR ---
Nursing Progress Note Legal hold: 5250 Client on involuntary status for GD Report received from RN with use of SBAR Why they are here: Per the ER chart pt has a hx of bipolar schizophrenia and substance use disorder. ER toxicology was + methamphetamine and + cannabis. PT reportedly lives with her grandmother but is using drugs and was found naked in the street by family. She has a loan service officer who suggested she be brought to the hospital for help. Per notes pt was on Zyprexa and Risperdal but stopped taking these. Her grandmother reported that Jean Paul has not taken a shower or changed her clothes in 4 months and has been carrying around raw meat and thinks it is her baby. Assessment What has happened this shift: Patient was seen at bedside for 1:1. Asked her what was with the other bed, "it's my Dads bed, Eddy." Any side effects to medicine? "What are SE? Like robbery, like being mean to my ex? ID?" She then states, "I don't like to be bored." What's your DC plan? "Right here with me, month 2003, It's a [facility] living place." Patient reports she's doing great. She was compliant with medications, and went to bed soon after. SI/HI: Denies A/VH: Denies Sleep: See sleep hours ADL's: Independent Group attendance: No group in the evenings Were Meds taken: Yes Any med S/E: None observed or reported Mental Status Exam Appearance: Casual in scrubs Eye contact: Good Behavior: disorganized Speech: Clear, audible, Mood: Elevated Affect: Animated, child-like Thought process: disorganized, delusional Thought Content: Wanting to go home Cognition: A/O X 1 Insight: Poor Judgment: Poor Interventions PRN's used: None Therapeutic interventions: 1:1 assessment, therapeutic communication, active listening, medication administration/education/monitoring, provided simple, clear directions, behavior monitoring and intervention; frequent reality orientation, distraction, and redirection, positive reinforcement, and Q 15 minute safety checks. Restraints/seclusion/emergency medication: None Justification of Continued Inpatient Treatment: Pt continues to be gravely disabled. She is extremely disorganized and is not even sure who she is at times. She is delusional and impulsive. She needs further medication adjustment and monitoring in a safe and therapeutic environment.
[2021-07-06 07:29] VITALS: BP 94/50
[2021-07-06] MEDS: risperiDONE 0.5mg tablet PO SCH ×2 (08:04→20:02)
[2021-07-06] MEDS: guanFACINE 1 mg tablet PO SCH ×2 (08:04→20:03)
[2021-07-06] MEDS: benztropine 1mg tablet PO SCH ×2 (08:04→20:03)
[2021-07-06] MEDS: hydrOXYzine 25 MG tablet PO PRN ×2 (08:05→17:28)
--- NOTE | 2021-07-06 17:27 | NUR ---
Group Art Tx. Continued: Patient entered the group room, hovered some over the chair and decided to sit down. Patient was provided with instruction and art materials, however he did not maintain a focus or interest in doing anything related to the group process or topic. Patient did seem to enjoy watching the nature/waterfall and music video that was playing softly playing in the background. Patient did not use his drawing paper, however, when asked to put it on the table, he continuously would drop it on the floor...it took several tries for him to successfully place the paper on the table. Patient was aware of his peers and staff, making occasional gestures, simple words and eye contact. *Please refer to [employer] for a complete overview of todays session. Melissa Allison MA, DANCE PROFESSOR #[id number] [facility] Art Therapist Addendum: 07/06/21 at 1730 by Melissa Allison SS Amended: Links added.
--- NOTE | 2021-07-06 17:54 | NUR ---
Nursing Progress Note: Jean Paul Legal hold: 5250 Client on involuntary status for GD Report received from DOTTIE Lopez with use of SBAR Why they are here: Per the ER chart pt has a hx of bipolar schizophrenia and substance use disorder. ER toxicology was + methamphetamine and + cannabis. PT reportedly lives with her grandmother but is using drugs and was found naked in the street by family. She has a nuclear security officer who suggested she be brought to the hospital for help. Per notes pt was on Zyprexa and Risperdal but stopped taking these. Her grandmother reported that Jean Paul has not taken a shower or changed her clothes in 4 months and has been carrying around raw meat and thinks it is her baby. Assessment What has happened this shift: Patient noted walking around the unit at change of shift. She approached this life underwriter making delusional statements of spaceships going round and round making the man dizzy, also endorsing that men think with their hamburgers and women think with their boobs. Patient endorsed feelings of anxiety and was given PRN Atarax at approximately 0805. Patient continues to present as intrusive, child-like, and disorganized. She joined in the community room for breakfast with peers. Patient was noted to be active and social with other peers on the unit throughout the day. When questioned about SI/HI, AH or VH, patient endorsed, you have horses to ride! She was receptive to assessment and scheduled medication. Patient noted napping intermittently throughout the day. She participated in the community room for all meal and snack times. Patient approached this life underwriter endorsing that she needs to calm her nerves. Patient given PRN Atarax at 1728. SI/HI: Denies A/VH: Denies Sleep: Patient slept 7.25 hours last night per NOC shift, napped intermittently today ADL's: Independent Group attendance: Yes Were Meds taken: Yes Any med S/E: None observed or reported Mental Status Exam Appearance: Young female wearing personal clothing. Hair is high ponytail on top of her head. Eye contact: Good Behavior: Disorganized, delusional Speech: Clear, audible, WNL Mood: Elevated Affect: Animated, child-like Thought process: Disorganized, delusional Thought Content: Delusions of spaceships going round and round making the man dizzy. Cognition: A&O X 1 to self Insight: Poor Judgment: Poor Interventions PRN's used: Atarax x2 Therapeutic interventions: 1:1 assessment, therapeutic communication, active listening, medication administration/education/monitoring, provided simple, clear directions, behavior monitoring and intervention; frequent reality orientation, distraction, and redirection, positive reinforcement, and Q 15 minute safety checks. Restraints/seclusion/emergency medication: None Justification of Continued Inpatient Treatment: Pt continues to be gravely disabled. She is extremely disorganized and is not even sure who she is at times. She is delusional and impulsive. She needs further medication adjustment and monitoring in a safe and therapeutic environment.
[2021-07-06 19:39] VITALS: BP 115/52
[2021-07-06] MEDS: divalproex sod 250mg ER (24-hour) tablet PO SCH (20:03)
[2021-07-06] MEDS: traZODone 50mg tablet PO SCH (20:03)
--- NOTE | 2021-07-07 01:32 | NUR ---
Nursing Progress Note Legal hold: 5270 for grave disability Report received from Bernardo Manzano charge lpn Why they are here: Per the ER chart pt has a hx of bipolar schizophrenia and substance use disorder. ER toxicology was + methamphetamine and + cannabis. PT reportedly lives with her grandmother but is using drugs and was found naked in the street by family. She has a certified juvenile probation officer who suggested she be brought to the hospital for help. Per notes pt was on Zyprexa and Risperdal but stopped taking these. Her grandmother reported that Jean Paul has not taken a shower or changed her clothes in 4 months and has been carrying around raw meat and thinks it is her baby. Assessment What has happened this shift: The patient was isolative to her room but was cooperative when approached for the evening assessment. Her replies were bizarre and frequently did not correlate to what was asked. When asked when her last BM was she replied, "I think just purple ink" She was unable to state what year it was. She was not able to state where she was at and stated, "[facility], [facility], and [facility]" When asked how her mood was she replied, "I just opened a bottle of renee" She then added, "I had 32 babies so the dog food is for that" She has not required any redirection. She is unable to verbalize any kind of plan for food, chcf or clothing if she were not on the inpatient unit. She has had no self injurious behaviors. She has had no assaultive behaviors. She is disheveled. She was medication compliant. She has not required any PRN medication. She remains gravely disabled.
[2021-07-07 07:16] VITALS: BP 99/48
[2021-07-07] MEDS: risperiDONE 0.5mg tablet PO SCH ×2 (07:49→21:05)
[2021-07-07] MEDS: guanFACINE 1 mg tablet PO SCH ×2 (07:49→21:06)
[2021-07-07] MEDS: benztropine 1mg tablet PO SCH ×2 (07:49→21:06)
--- NOTE | 2021-07-07 08:59 | NUR ---
Pt. attended group today. Today we discussed Wellness and utilized the Self Care Wheel to help Patients determine the wellness/self-care activities they enjoy in each domain presented in the wheel. The four domains are the physical, spiritual, emotional and physical. Pt. struggled to engage when asked to write concrete data down in her four domains. She was able to say she likes playing in water and then wrote random words over the other four domains. She picked the word cow boy and placed in on the page reporting that her grandfather was a cow boy. Her thought process continues to be disorganized. She veers into loose associations frequently and tends to interject strange questions such as, "Are spiders demons". Her demeanor is pleasant and calm. She is amenable to redirection. Sonali Child LCSW Addendum: 07/07/21 at 0906 by Sonali PETERSEN This note should be dated 07/06/2021.
[2021-07-07] MEDS ORDERED: haloperidol 5mg tablet PO ONE (14:15)
[2021-07-07] MEDS ORDERED: LORazepam 1 MG tablet PO ONE (14:15)
[2021-07-07] MEDS ORDERED: diphenhydrAMINE 25mg capsule PO ONE (14:15)
--- NOTE | 2021-07-07 15:49 | NUR ---
Group Art Tx. Continued: Patient remained in group for the entire session. Patient was unable to follow the directives, however, was very interested in drawing her own designs and writing unrelated/non-sensical words on paper. Patient was appropriate to the group milieu,in that she was content and interactive with this therapist and a few peers attending. It remains difficult for this therapist to determine what type of significant or meaningful connections she is able to make with her disorganized thoughts. She was talking some about her "Grandleta Amor and Grandsusanne Ba who she loves very much and would like to see." *Please refer to [employer] for a complete overview of today's session. Melissa Allison MA, [facility] #[id number] [facility] Art Therapist Addendum: 07/07/21 at 1551 by Melissa Allison SS Amended: Links added.
--- NOTE | 2021-07-07 16:37 | NUR ---
Nursing Progress Note: Legal hold: 5270 Client on involuntary status for GD Report received from DOTTIE Lopez with use of SBAR Why they are here: Per the ER chart pt has a hx of bipolar schizophrenia and substance use disorder. ER toxicology was + methamphetamine and + cannabis. PT reportedly lives with her grandmother but is using drugs and was found naked in the street by family. She has a aboriginal liaison officer who suggested she be brought to the hospital for help. Per notes pt was on Zyprexa and Risperdal but stopped taking these. Her grandmother reported that Jean Paul has not taken a shower or changed her clothes in 4 months and has been carrying around raw meat and thinks it is her baby. Assessment What has happened this shift: Pt got up late for breakfast. Pt was cooperative with medications. Pt returned to bed for a nap after breakfast. When this nurse called pt by her name, "Jean Paul", pt replied, "no, my name's Rosanne." Later in the shift heard pt tell a hospitalist to call her "Deep." Pt continues to be childlike and disorganized though less disorganized than last week. Pt tells staff she loves them. Pt makes phone calls and loudly tells people on the other end that she loves them. Pt was sitting in the dining room before lunch. She stated, "I farted" and then laughed. Pt showered today. Pt has been pleasant and redirectable. SI/HI: Pt denies A/VH: Pt denies Sleep: Patient slept 7.75 hours last night per NOC shift, napped after breakfast. ADL's: Independent Group attendance: Yes Were Meds taken: Yes Any med S/E: None noted or reported. Mental Status Exam Appearance: Young female with short hair buzzed in the back and longer in the front dressed in jeans and a peach colored sweatshirt. After her shower, she changed into unit scrubs and wears 2 pairs of scrub pants at one time. Eye contact: Good Behavior: Pleasant, cooperative, impulsive, disorganized. Speech: Clear, audible, somewhat rapid. Mood: Good Affect: Animated, child-like. Thought process: Disorganized, delusional Thought Content: She loves everyone. Cognition: A/O X 1 Insight: Poor Judgment: Poor Interventions PRN's used: None Therapeutic interventions: 1:1 assessment, therapeutic communication, active listening, medication administration/education/monitoring, provided simple, clear directions, behavior monitoring and intervention; reality orientation, distraction, redirection, positive reinforcement, and Q 15 minute safety checks. Restraints/seclusion/emergency medication: None Justification of Continued Inpatient Treatment: Pt continues to be gravely disabled. She is disorganized not even sure who she is at times. She is delusional and impulsive. She needs further medication adjustment and monitoring in a safe and therapeutic environment.
[2021-07-07 19:00] VITALS: BP 107/49
[2021-07-07] MEDS: traZODone 50mg tablet PO SCH (21:06)
[2021-07-07] MEDS: divalproex sod 250mg ER (24-hour) tablet PO SCH (21:06)
--- NOTE | 2021-07-08 04:52 | NUR ---
Nursing Progress Note: Legal hold: 5270 Patient on involuntary status for GD Report received from DOTTIE Sureo with use of SBAR Why they are here: Per the ER chart pt has a hx of bipolar schizophrenia and substance use disorder. ER toxicology was + methamphetamine and + cannabis. PT reportedly lives with her grandmother but is using drugs and was found naked in the street by family. She has a [place] [employer] police officer who suggested she be brought to the hospital for help. Per notes pt was on Zyprexa and Risperdal but stopped taking these. Her grandmother reported that Jean Paul has not taken a shower or changed her clothes in 4 months and has been carrying around raw meat and thinks it is her baby. Assessment What has happened this shift: Patient up in the khan at the beginning of shift. Mostly pleasant and cooperative with care; compliant with medication. Patient denies SI, HI, A/VH; appears internally preoccupied. Short responses with typewriters functional tester and some irritability presented. When typewriters functional tester greeted her, patient stated, "go away." Shortly after she sat up and allowed typewriters functional tester to get VS and and pass medications. Patient provided HS snack; observed sleeping and does not appear to be having difficulty. SI/HI: Denies A/VH: Denies; appears preoccupied Sleep: Refer to sleep assessment ADL's: Independent Group attendance: NA Were Meds taken: Yes Any med S/E: None noted or reported Mental Status Exam Appearance: Neat, appropriately dressed in personal attire Eye contact: Good Behavior: Pleasant, cooperative, impulsive, irritable Speech: Clear, audible, somewhat rapid. Mood: Labile Affect: Animated, child-like. Thought process: Disorganized, delusional Thought Content: Meeting needs Cognition: A/O X 1 Insight: Poor Judgment: Poor Interventions PRN's used: None Therapeutic interventions: 1:1 assessment, therapeutic communication, active listening, medication administration/education/monitoring, provided simple, clear directions, behavior monitoring and intervention; reality orientation, distraction, redirection, positive reinforcement, and Q 15 minute safety checks. Restraints/seclusion/emergency medication: None Justification of Continued Inpatient Treatment: Pt continues to be gravely disabled. She is disorganized not even sure who she is at times. She is delusional and impulsive. She needs further medication adjustment and monitoring in a safe and therapeutic environment.
[2021-07-08] MEDS: guanFACINE 1 mg tablet PO SCH ×2 (07:33→20:40)
[2021-07-08] MEDS: risperiDONE 0.5mg tablet PO SCH ×2 (07:33→20:40)
[2021-07-08] MEDS: benztropine 1mg tablet PO SCH ×2 (07:33→20:40)
[2021-07-08 08:39] VITALS: BP 92/52
--- NOTE | 2021-07-08 16:31 | NUR ---
Nursing Progress Note: Legal hold: 5270 Client on involuntary status for GD Report received from Elidia Dupont RN with use of SBAR Why they are here: Per the ER chart pt has a hx of bipolar schizophrenia and substance use disorder. ER toxicology was + methamphetamine and + cannabis. PT reportedly lives with her grandmother but is using drugs and was found naked in the street by family. She has a returning officer who suggested she be brought to the hospital for help. Per notes pt was on Zyprexa and Risperdal but stopped taking these. Her grandmother reported that Jean Paul has not taken a shower or changed her clothes in 4 months and has been carrying around raw meat and thinks it is her baby. Assessment What has happened this shift: Pt was up before breakfast. Pt was cooperative with medications. Her Tenex was held for a decreased BP of 92/52. Pt remains A/O X 1 though is now more easily reoriented and directable. Pt has been pleasantly disorganized. Pt laughs happily albeit inappropriately to herself. Pt appears to be responding to internal stimuli at times. Pt stated she is a little depressed because her light stick was taken away. Asked pt if this happened today, she answered, "no, last week." Asked pt if she hears voices, pt replied when Javier makes music. Asked pt if she had heard Javier today. Pt thought about and replied that no she hadn't heard Javier or Tee today. Pt then began singing a Basim Jarred song. Pt went out on the patio today with a few other patients and the charge nurse. SI/HI: Pt denies A/VH: Pt denies Sleep: Patient slept 7 hours last night per NOC shift report. ADL's: Independent Group attendance: No groups today. Were Meds taken: Yes Any med S/E: None noted or reported. Mental Status Exam Appearance: Young female with short hair buzzed in the back and longer in the front dressed in scrubs and a peach colored sweatshirt. Eye contact: Good Behavior: Pleasant, cooperative, disorganized, easily redirected. Speech: Clear, audible, somewhat rapid. Mood: Good Affect: Animated, child-like. Thought process: Disorganized, delusional Thought Content: Her light stick was taken away from her last week. Cognition: A/O X 1 Insight: Poor Judgment: Poor Interventions PRN's used: None Therapeutic interventions: 1:1 assessment, therapeutic communication, active listening, medication administration/education/monitoring, provided simple, clear directions, behavior monitoring and intervention; reality orientation, distraction, redirection, positive reinforcement, and Q15 minute safety checks. Restraints/seclusion/emergency medication: None Justification of Continued Inpatient Treatment: Pt continues to be gravely disabled. She is delusional and disorganized. She needs further medication adjustment and monitoring in a safe and therapeutic environment.
[2021-07-08] MEDS: hydrOXYzine 25 MG tablet PO PRN (16:46)
--- NOTE | 2021-07-08 16:46 | NUR ---
Pt approached this nurse to ask for some Atarax. PRN Atarax 50 mg was administered.
[2021-07-08 19:00] VITALS: BP 121/60
[2021-07-08] MEDS: traZODone 50mg tablet PO SCH (20:40)
[2021-07-08] MEDS: divalproex sod 250mg ER (24-hour) tablet PO SCH (20:40)
--- NOTE | 2021-07-09 03:25 | NUR ---
Nursing Progress Note: Legal hold: 5270 Patient on involuntary status for GD Report received from DOTTIE Suero with use of SBAR Why they are here: Per the ER chart pt has a hx of bipolar schizophrenia and substance use disorder. ER toxicology was + methamphetamine and + cannabis. PT reportedly lives with her grandmother but is using drugs and was found naked in the street by family. She has a dog control officer who suggested she be brought to the hospital for help. Per notes pt was on Zyprexa and Risperdal but stopped taking these. Her grandmother reported that Jean Paul has not taken a shower or changed her clothes in 4 months and has been carrying around raw meat and thinks it is her baby. Assessment What has happened this shift: Patient laying in bed at the beginning of shift. Pleasant and cooperative with care; compliant with medication. Denies SI, HI, A/VH; appear to be internally preoccupied. Patient provides minimal and quick responses. She remains in her room except to requests snacks this shift; observed sleeping and does not appear to be having difficulty. SI/HI: Denies A/VH: Denies; appears preoccupied Sleep: Refer to sleep assessment ADL's: Independent Group attendance: NA Were Meds taken: Yes Any med S/E: None noted or reported Mental Status Exam Appearance: Neat, appropriately dressed in personal attire Eye contact: Good Behavior: Pleasant, cooperative, impulsive Speech: Clear, audible, somewhat rapid. Mood: Cheerful Affect: Animated, child-like. Thought process: Disorganized, delusional Thought Content: Meeting needs Cognition: A/O X 1 Insight: Poor Judgment: Poor Interventions PRN's used: None Therapeutic interventions: 1:1 assessment, therapeutic communication, active listening, medication administration/education/monitoring, provided simple, clear directions, behavior monitoring and intervention; reality orientation, distraction, redirection, positive reinforcement, and Q 15 minute safety checks. Restraints/seclusion/emergency medication: None Justification of Continued Inpatient Treatment: Pt continues to be gravely disabled. She is disorganized not even sure who she is at times. She is delusional and impulsive. She needs further medication adjustment and monitoring in a safe and therapeutic environment.
[2021-07-09 07:56] VITALS: BP 93/53
[2021-07-09] MEDS: guanFACINE 1 mg tablet PO SCH (08:00)
[2021-07-09] MEDS: benztropine 1mg tablet PO SCH (08:29)
[2021-07-09] MEDS: risperiDONE 0.5mg tablet PO SCH ×2 (08:29→19:47)
--- NOTE | 2021-07-09 17:06 | NUR ---
Nursing Progress Note: Legal hold: 5270 Patient on involuntary status for GD Report received from DOTTIE Mabry with use of SBAR Why they are here: Per the ER chart patient has a history of bipolar schizophrenia and substance use disorder. ER toxicology was + methamphetamine and + cannabis. PT reportedly lives with her grandmother but is using drugs and was found naked in the street by family. She has a plant protection officer who suggested she be brought to the hospital for help. Per notes patient was on Zyprexa and Risperdal but stopped taking these. Her grandmother reported that Jean Paul has not taken a shower or changed her clothes in 4 months and has been carrying around raw meat and thinks it is her baby. Assessment What has happened this shift: Received patient while she was up and sitting on the floor outside the kitchen waiting for a snack and coffee. Gave patient medications while she was eating breakfast in the Community Room. 1:1 Patient Assessment and Interview completed after breakfast. Patient has no complaints at this time. Patient goes from speaking in a baby-like voice to her own voice. Patient actively walking, sitting down, watching a movie, and continues to change positions and activity frequently throughout the day. Patient appears pre-occupied and speaking to internal voices. Patient participated in snacks and took afternoon nap after lunch. SI/HI: Denies A/VH: Denies; appears preoccupied Sleep: Refer to sleep assessment ADL's: Independent Group attendance: No Group Meetings Held on the Weekends. Were Meds taken: Yes, without hesitation. Any med S/E: None noted or reported Mental Status Exam Appearance: Neat, appropriately dressed in pink sweatshirt and green scrub pants. Eye contact: Good Behavior: Pleasant, cooperative, impulsive Speech: Clear, audible, somewhat rapid. Mood: Cheerful Affect: Animated, child-like. Thought process: Delusional Thought Content: Meeting needs Cognition: A/O X 1 Insight: Poor Judgment: Poor Interventions PRN's used: None Therapeutic interventions: 1:1 assessment, therapeutic communication, active listening, medication administration/education/monitoring, provided simple, clear directions, behavior monitoring and intervention; reality orientation, distraction, redirection, positive reinforcement, and Q 15 minute safety checks. Restraints/seclusion/emergency medication: None Justification of Continued Inpatient Treatment: Pt continues to be gravely disabled. She is disorganized not even sure who she is at times. She is delusional and impulsive. She needs further medication adjustment and monitoring in a safe and therapeutic environment.
[2021-07-09 19:15] VITALS: BP 112/59
[2021-07-09] MEDS: OLANZapine 2.5MG tablet PO SCH (19:46)
--- NOTE | 2021-07-10 02:00 | NUR ---
Nursing Progress Note: for Jean Paul Legal hold: 5270 Patient on involuntary status for GD Report received from DOTTIE Suero with use of SBAR Why they are here: Per the ER chart patient has a history of bipolar schizophrenia and substance use disorder. ER toxicology was + methamphetamine and + cannabis. PT reportedly lives with her grandmother but is using drugs and was found naked in the street by family. She has a community arts officer who suggested she be brought to the hospital for help. Per notes patient was on Zyprexa and Risperdal but stopped taking these. Her grandmother reported that Jean Paul has not taken a shower or changed her clothes in 4 months and has been carrying around raw meat and thinks it is her baby. Assessment What has happened this shift: Received patient while she was sitting on her bed. VS taken. Pt took medications with no questions or hesitations, assessment and Interview completed, snack was given. Patient has no complaints at this time. Patient goes from speaking in a child-like voice, stating that she is very happy. Patient actively walking, sitting down in hallway. Had repetitive statements and requests if she has not been given what she wants at that moment. Pt sleeping this noc shift thus far. SI/HI: Denies A/VH: Denies; appears preoccupied Sleep: well. ADL's: Independent Group attendance: No Group Meetings this noc shift. Were Meds taken: Yes, no questions Any med S/E: None noted or reported Mental Status Exam Appearance: Dressed in pink sweatshirt and green scrub pants, chopped hair-cut, messy Eye contact: Good Behavior: Pleasant, cooperative, impulsive Speech: Clear, audible, somewhat rapid. Mood: Cheerful Affect: Animated, child-like. Thought process: Delusional Thought Content: Meeting needs Cognition: A/O X 1 Insight: Poor Judgment: Poor Interventions PRN's used: None needed. Therapeutic interventions: 1:1 assessment, therapeutic communication, active listening, medication administration/education/monitoring, provided simple, clear directions, behavior monitoring and intervention; reality orientation, distraction, redirection, positive reinforcement, and Q 15 minute safety checks. Restraints/seclusion/emergency medication: None Justification of Continued Inpatient Treatment: Pt continues to be gravely disabled. She is disorganized not even sure who she is at times. She is delusional and impulsive. She needs further medication adjustment and monitoring in a safe and therapeutic environment.
[2021-07-10 07:53] VITALS: BP 114/71
[2021-07-10] MEDS: risperiDONE 0.5mg tablet PO SCH ×2 (08:30→20:24)
[2021-07-10] MEDS: hydrOXYzine 25 MG tablet PO PRN ×2 (12:36→16:19)
--- NOTE | 2021-07-10 17:40 | NUR ---
Nursing Progress Note: Legal hold: 5270 Patient on involuntary status for GD Report received from DOTTIE Mallory with use of SBAR Why they are here: Per the ER chart patient has a history of bipolar schizophrenia and substance use disorder. ER toxicology was + methamphetamine and + cannabis. PT reportedly lives with her grandmother but is using drugs and was found naked in the street by family. She has a air control/anti air warfare officer who suggested she be brought to the hospital for help. Per notes patient was on Zyprexa and Risperdal but stopped taking these. Her grandmother reported that Jean Paul has not taken a shower or changed her clothes in 4 months and has been carrying around raw meat and thinks it is her baby. Assessment What has happened this shift: Received patient while she was sleeping in her bed. Patient woke up just before breakfast and went to the dining room for her medications. Patient then returned to her bed after breakfast. Patient awoke at 1100, and participated in snack time, then walked the hallways multiple times. Requested Atarax at 1230 for c/o anxiety. Patient appeared to calm down then returned to her bed to rest during the afternoon. Patient walks around talking to self in the hallway or in her room. Patient up for snack at 1500. Pleasant and states she feels better after she had the Atarax. SI/HI: Denies A/VH: Denies Sleep: See sleep assessment ADL's: Independent, Showered Today Group attendance: No Group Meetings Held This Weekend. Were Meds taken: Yes, no hesitation Any med S/E: None noted or reported Mental Status Exam Appearance: Dressed in pink sweatshirt and green scrub pants, chopped hair-cut with shaved head in the back. Eye contact: Good Behavior: Pleasant, Cooperative Speech: Clear, audible, Mood: Cheerful Affect: Animated, child-like. Thought process: Delusional Thought Content: Meeting needs Cognition: A/O X 1 Insight: Poor Judgment: Poor Interventions PRN's used: Atarax x2. Therapeutic interventions: 1:1 assessment, therapeutic communication, active listening, medication administration/education/monitoring, provided simple, clear directions, behavior monitoring and intervention; reality orientation, distraction, redirection, positive reinforcement, and Q 15 minute safety checks. Restraints/seclusion/emergency medication: None Justification of Continued Inpatient Treatment: Pt continues to be gravely disabled. She is disorganized not even sure who she is at times. She is delusional and impulsive. She needs further medication adjustment and monitoring in a safe and therapeutic environment.
[2021-07-10 19:29] VITALS: BP 108/46
[2021-07-10] MEDS: OLANZapine 2.5MG tablet PO SCH (20:24)
--- NOTE | 2021-07-11 03:00 | NUR ---
Nursing Progress Note: Legal hold: 5270 Patient on involuntary status for GD Report received from DOTTIE Ledbetter with use of SBAR Why they are here: Per the ER chart pt has a hx of bipolar schizophrenia and substance use disorder. ER toxicology was + methamphetamine and + cannabis. PT reportedly lives with her grandmother but is using drugs and was found naked in the street by family. She has a property disposal officer who suggested she be brought to the hospital for help. Per notes pt was on Zyprexa and Risperdal but stopped taking these. Her grandmother reported that Jean Paul has not taken a shower or changed her clothes in 4 months and has been carrying around raw meat and thinks it is her baby. Assessment What has happened this shift: Patient seen in the hallway at shift change. She stops to say hello. Patient appears to be doing better, especially her hygiene. She appears to be somewhat less childish. Patient headed to her room climbed in bed and took a nap until snack time. She was compliant with her medications and denies all MH symptoms. Patient is observed responding or being internally preoccupied by stimuli. She is observed sleeping in her bed without difficulty. SI/HI: Denies A/VH: Denies; appears preoccupied Sleep: Refer to sleep assessment ADL's: Independent Group attendance: NA Were Meds taken: Yes Any med S/E: None noted or reported Mental Status Exam Appearance: Neat, appropriately dressed in personal attire Eye contact: Good Behavior: Pleasant, cooperative, impulsive Speech: Clear, audible, somewhat rapid. Mood: Cheerful Affect: Animated, child-like. Thought process: Disorganized, delusional Thought Content: Meeting needs Cognition: A/O X 1 Insight: Poor Judgment: Poor Interventions PRN's used: None Therapeutic interventions: 1:1 assessment, therapeutic communication, active listening, medication administration/education/monitoring, provided simple, clear directions, behavior monitoring and intervention; reality orientation, distraction, redirection, positive reinforcement, and Q 15 minute safety checks. Restraints/seclusion/emergency medication: None Justification of Continued Inpatient Treatment: Pt continues to be gravely disabled. She is disorganized not even sure who she is at times. She is delusional and impulsive. She needs further medication adjustment and monitoring in a safe and therapeutic environment.
[2021-07-11] MEDS: risperiDONE 0.5mg tablet PO SCH ×2 (07:46→20:11)
[2021-07-11] MEDS: hydrOXYzine 25 MG tablet PO PRN ×2 (07:46→14:09)
[2021-07-11 08:00] VITALS: BP 100/59
--- NOTE | 2021-07-11 09:44 | NUR ---
Pt. attended group today. Today's group was about the different communications styles i.e passive, aggressive and assertive. We discussed what the characteristics of each style was. We then discussed where they saw themselves at now and where they would like to be with their communication style. Pt. engaged in the group. Her thought content tends to tangent into loose associations and delusions more often than not when she is sharing thoughts which make it difficult to follow. When asked what animal she felt represented her she named like five different animals without putting much thought into it. Her demeanor is pleasant and calm. She does need redirection as she can speak over others or interrupt others while they are speaking. She has a child like alessio and believes that she is [age] years old. When asked concrete questions such as, "who does your family consist of ?she was able to report she had a mom and dad and grandma but had difficulty deciding on what siblings she had and it was difficult to understand who she actually lives with because she veers into delusional content that makes no sense. Sonali Child, ROCKY
--- NOTE | 2021-07-11 17:49 | NUR ---
Nursing Progress Note: Legal hold: 5270 Patient on involuntary status for GD Report received from DOTTIE Gonzalez with use of SBAR Why they are here: Per the ER chart pt has a hx of bipolar schizophrenia and substance use disorder. ER toxicology was + methamphetamine and + cannabis. PT reportedly lives with her grandmother but is using drugs and was found naked in the street by family. She has a agricultural extension officer who suggested she be brought to the hospital for help. Per notes pt was on Zyprexa and Risperdal but stopped taking these. Her grandmother reported that Jean Paul has not taken a shower or changed her clothes in 4 months and has been carrying around raw meat and thinks it is her baby. Assessment What has happened this shift: Received patient while she was awake in the hallway, sitting on the floor outside of the kitchen at 0625. Informed patient coffee would be served at 0700, and requested that she not sit on the floor because it is dirty. Patient frequently asking for Coffee & Sprite, approximately every 30 minutes since 0700. Patient was informed snack time was at 1100, and 1105, patient was requesting Sprite. Patient came to the Observation Room door and again was told No by another staff member, and patient responded You all dont like me anymore. Followed patient to the Community Room to inform patient that we have to all abide by the rules and times of the unit, and we would not be able to get out work done if we served food and snacks all the time. Showered and Laundry done. Jean Paul has been promiscuous with patient from [address] most of the day today. They were observed holding hands in the TV room and sitting with chairs face to face in the Community Room. Patient has been attached to this patient the entire day, and must be watched continuously if not in line of sight. SI/HI: Denies A/VH: Denies; appears preoccupied Sleep: Refer to sleep assessment ADL's: Independent, Showered Today. Group attendance: Attended the morning group meeting. Were Meds taken: Yes, without hesitation. Any med S/E: None noted or reported Mental Status Exam Appearance: Neat, appropriately dressed in personal attire Eye contact: Good Behavior: Pleasant, cooperative, impulsive Speech: Clear, audible, somewhat rapid. Mood: Cheerful Affect: Animated, child-like. Thought process: Disorganized, delusional Thought Content: Meeting needs Cognition: A/O X 1 Insight: Poor Judgment: Poor Interventions PRN's used: Atarax x1 Therapeutic interventions: 1:1 assessment, therapeutic communication, active listening, medication administration/education/monitoring, provided simple, clear directions, behavior monitoring and intervention; reality orientation, distraction, redirection, positive reinforcement, and Q 15 minute safety checks. Restraints/seclusion/emergency medication: None Justification of Continued Inpatient Treatment: Pt continues to be gravely disabled. She is disorganized not even sure who she is at times. She is delusional and impulsive. She needs further medication adjustment and monitoring in a safe and therapeutic environment.
[2021-07-11] MEDS: OLANZapine 2.5MG tablet PO SCH (20:12)
[2021-07-11 20:14] VITALS: BP 130/64
--- NOTE | 2021-07-12 00:46 | NUR ---
Nursing Progress Note: Legal hold: 5270 Patient on involuntary status for GD Report received from DOTTIE Suero with use of SBAR Why they are here: Per the ER chart pt has a hx of bipolar schizophrenia and substance use disorder. ER toxicology was + methamphetamine and + cannabis. PT reportedly lives with her grandmother but is using drugs and was found naked in the street by family. She has a postal delivery officer who suggested she be brought to the hospital for help. Per notes pt was on Zyprexa and Risperdal but stopped taking these. Her grandmother reported that Jean Paul has not taken a shower or changed her clothes in 4 months and has been carrying around raw meat and thinks it is her baby. Assessment What has happened this shift: Pt was walking in the hallway at change of shift. She states she is here "to spiritism Portia richey been [employer]hov[employer] witness my entire life since I was 13." Pt asks for snacks and attempts to look into the clean utility to ask if there is coffee. Pt was redirected to stand away from the door. Pt seems to isolate to herself tonight, walking around the unit. Pt retrieved snacks and went to her room to eat. Pt is med compliant. SI/HI: Denies A/VH: Denies; appears preoccupied Sleep: Refer to sleep assessment ADL's: Independent Group attendance: no evening groups Were Meds taken: Yes, without hesitation. Any med S/E: None noted or reported Mental Status Exam Appearance: Neat, appropriately dressed in personal attire Eye contact: Good Behavior: Pleasant, cooperative, impulsive Speech: Clear, audible, somewhat rapid. Mood: Cheerful Affect: Animated, child-like. Thought process: Disorganized, delusional Thought Content: Meeting needs Cognition: A/O X 1 Insight: Poor Judgment: Poor Interventions PRN's used: none Therapeutic interventions: 1:1 assessment, therapeutic communication, active listening, medication administration/education/monitoring, provided simple, clear directions, behavior monitoring and intervention; reality orientation, distraction, redirection, positive reinforcement, and Q 15 minute safety checks. Restraints/seclusion/emergency medication: None Justification of Continued Inpatient Treatment: Pt continues to be gravely disabled. She is disorganized not even sure who she is at times. She is delusional and impulsive. She needs further medication adjustment and monitoring in a safe and therapeutic environment.
[2021-07-12] MEDS: risperiDONE 0.5mg tablet PO SCH ×2 (07:52→20:16)
[2021-07-12] MEDS: OLANZapine 2.5MG tablet PO SCH ×2 (07:52→20:16)
[2021-07-12 08:00] VITALS: BP 100/57
--- NOTE | 2021-07-12 13:35 | NUR ---
Reassessment: Pt currently on regular diet and eating well, documented with ~100% PO intake meeting estimated nutrient needs. [facility] 07/09, with PRN bowel care available. Will continue to follow and monitor need for nutrition intervention. Recommendations: 1) Continue regular diet 2) Bowel care PRN 3) Weekly scaled weights Addendum: 07/12/21 at [address] Amended: Links added.
--- NOTE | 2021-07-12 14:33 | NUR ---
Nursing Progress Note: Legal hold: 5270 Client on involuntary status for GD Report received from DOTTIE Lopez with use of SBAR Why they are here: Per the ER chart pt has a hx of bipolar schizophrenia and substance use disorder. ER toxicology was + methamphetamine and + cannabis. PT reportedly lives with her grandmother but is using drugs and was found naked in the street by family. She has a classification officer who suggested she be brought to the hospital for help. Per notes pt was on Zyprexa and Risperdal but stopped taking these. Her grandmother reported that Jean Paul has not taken a shower or changed her clothes in 4 months and has been carrying around raw meat and thinks it is her baby. Assessment What has happened this shift: Pt was up before breakfast walking in the [place] and asking for coffee with hot chocolate. Pt is pleasantly disorganized and delusional. Pt states, "I'm like 1." Pt also states that she doesn't want to leave here. 'I like it here." Pt napped after breakfast. Pt spends much of her time in the milieu and socializes with peers. Pt accepts limit setting well and is easily redirectable. SI/HI: Pt denies A/VH: Pt denies Sleep: Patient slept 7.75 hours last night per NOC shift report. ADL's: Independent Group attendance: No Were Meds taken: Yes Any med S/E: None noted or reported. Mental Status Exam Appearance: Young female with short hair buzzed in the back and longer in the front dressed in a peach colored sweatshirt and leggings with green scrub pants sagging over them. Eye contact: Good Behavior: Pleasant, cooperative, disorganized, easily redirected. Speech: Clear, audible, somewhat rapid. Mood: Good Affect: Animated, child-like. Thought process: Disorganized, delusional Thought Content: She's only 1 years old. Cognition: A/O X 2 Insight: Poor Judgment: Poor Interventions PRN's used: None Therapeutic interventions: 1:1 assessment, therapeutic communication, active listening, medication administration/education/monitoring, provided simple, clear directions, behavior monitoring and intervention; reality orientation, limit setting, distraction, redirection, positive reinforcement, and Q15 minute safety checks. Restraints/seclusion/emergency medication: None Justification of Continued Inpatient Treatment: Pt continues to be gravely disabled. She is delusional and disorganized. She is unable to formulate a viable plan for food, clothing, or senior care.
[2021-07-12] MEDS: hydrOXYzine 25 MG tablet PO PRN (17:33)
[2021-07-12 20:02] VITALS: BP 146/65
--- NOTE | 2021-07-12 20:54 | NUR ---
Nursing Progress Note: Legal hold: 5270 Client on involuntary status for GD Report received from DOTTIE Suero with use of SBAR Why they are here: Per the ER chart pt has a hx of bipolar schizophrenia and substance use disorder. ER toxicology was + methamphetamine and + cannabis. PT reportedly lives with her grandmother but is using drugs and was found naked in the street by family. She has a salvation [employer] officer who suggested she be brought to the hospital for help. Per notes pt was on Zyprexa and Risperdal but stopped taking these. Her grandmother reported that Jean Paul has not taken a shower or changed her clothes in 4 months and has been carrying around raw meat and thinks it is her baby. Assessment What has happened this shift: Pt walking in the [place] asking for candy at change of shift. Pt states she didnt shower today because she was mad that she got off track and slept in yesterday and "those are the outcomes and consequences and i need to follow the program better." Pt states her day was "awesome" and she colored a pink heart. Pt states she wants to go to [employer] and get a soda with her grandmother. States her favorite soda is Dr. Quijano but now she likes prune juice better. Then pt offered to share her drink. Declined pts offer. SI/HI: Pt denies A/VH: Pt denies Sleep: see sleep hours ADL's: Independent Group attendance: No Were Meds taken: Yes Any med S/E: None noted or reported. Mental Status Exam Appearance: Young female with short hair buzzed in the back and longer in the front dressed in a peach colored sweatshirt and leggings with green scrub pants sagging over them. Eye contact: Good Behavior: Pleasant, cooperative, disorganized, easily redirected. Speech: Clear, audible, somewhat rapid. Mood: "awesome!" euthymic Affect: Animated, child-like. Thought process: Disorganized, delusional Thought Content: wants to go to the [employer] and have soda Cognition: A/O X 2 Insight: Poor Judgment: Poor Interventions PRN's used: None Therapeutic interventions: 1:1 assessment, therapeutic communication, active listening, medication administration/education/monitoring, provided simple, clear directions, behavior monitoring and intervention; reality orientation, limit setting, distraction, redirection, positive reinforcement, and Q15 minute safety checks. Restraints/seclusion/emergency medication: None Justification of Continued Inpatient Treatment: Pt continues to be gravely disabled. She is delusional and disorganized. She is unable to formulate a viable plan for food, clothing, or retirement.
[2021-07-13] MEDS: risperiDONE 0.5mg tablet PO SCH ×2 (07:11→20:00)
[2021-07-13] MEDS: hydrOXYzine 25 MG tablet PO PRN (07:11)
[2021-07-13] MEDS: OLANZapine 2.5MG tablet PO SCH ×2 (07:12→20:00)
[2021-07-13 08:00] VITALS: BP 95/58
--- NOTE | 2021-07-13 15:32 | NUR ---
Nursing Progress Note: Legal hold: 5270 Client on involuntary status for GD Report received from DOTTIE Lopez with use of SBAR Why they are here: Per the ER chart pt has a hx of bipolar schizophrenia and substance use disorder. ER toxicology was + methamphetamine and + cannabis. PT reportedly lives with her grandmother but is using drugs and was found naked in the street by family. She has a operations officer afloat who suggested she be brought to the hospital for help. Per notes pt was on Zyprexa and Risperdal but stopped taking these. Her grandmother reported that Jean Paul has not taken a shower or changed her clothes in 4 months and has been carrying around raw meat and thinks it is her baby. Assessment What has happened this shift: Pt was up before breakfast. Pt asked for some Atarax for increased anxiety. Pt was given PRN Atarax 50 mg at 0711 along with her routine morning meds with good effect. Pt was oriented to person and place today. She knew she was at [facility]. Pt guessed that the date was July 14, she was only off by one day. Pt denies having a BM in the last few days. Pt denies discomfort. BS present X 4. Asked pt if her belly feels full. Pt eagerly replied, "yeah...it always does, I'm probably , I had sexual relations before coming here." Reality orientation provided that a test was done when she came here and she is not . Pt likes prune juice and was provided some. Pt is friendly and eager to please during interactions and conversations. She is child-like and wide eyed. She enjoys socializing with staff and peers and actively participates in groups. She had her nails done today by a [employer]. Pt continues to be delusional and somewhat disorganized. Pt asked this nurse, "Do you know Ishmael? Dog the Knitter Mechanic? He's my dad. I'm Rosanne." SI/HI: Pt denies A/VH: Pt denies Sleep: Patient slept 8.25 hours last night per NOC shift report. ADL's: Independent Group attendance: Yes Were Meds taken: Yes Any med S/E: None noted or reported. Mental Status Exam Appearance: Young female with short hair buzzed in the back and longer in the front. She wears the longer part pulled back in a couple of small pony tails. She is dressed in a peach colored hooded sweatshirt over a black top with green scrub pants. Eye contact: Good Behavior: Friendly, cooperative, disorganized, socializes with staff and peers. Speech: Clear, audible, somewhat pressured, hyperverbal. Mood: Mildly elevated. Affect: Animated, child-like. Thought process: Disorganized, delusional, loose associations. Thought Content: She's , Dog the Knitter Mechanic is her dad. Cognition: A/O X 3 Insight: Poor Judgment: Poor Interventions PRN's used: Atarax Therapeutic interventions: 1:1 assessment, therapeutic conversation, active listening, medication administration/education/monitoring, provided simple, clear directions, reassured pt that she is safe, behavior monitoring and intervention; reality orientation, limit setting, distraction, redirection, positive reinforcement, and Q15 minute safety checks. Restraints/seclusion/emergency medication: None Justification of Continued Inpatient Treatment: Pt continues to be gravely disabled. She is delusional and disorganized. She is unable to formulate a viable plan for food, clothing, or residential.
[2021-07-13 20:30] VITALS: BP 109/71
--- NOTE | 2021-07-14 00:47 | NUR ---
Nursing Progress Note Legal hold: 5269 for grave disability Report received from Bernardo Suero rn discharge Why they are here: Per the ER chart pt has a hx of bipolar schizophrenia and substance use disorder. ER toxicology was + methamphetamine and + cannabis. PT reportedly lives with her grandmother but is using drugs and was found naked in the street by family. She has a school services officer who suggested she be brought to the hospital for help. Per notes pt was on Zyprexa and Risperdal but stopped taking these. Her grandmother reported that Jean Paul has not taken a shower or changed her clothes in 4 months and has been carrying around raw meat and thinks it is her baby. Assessment What has happened this shift: The patient was up on the unit and attempting to socialize with others but her thought process was so disorganized that she had difficulty maintaining a conversation. She was friendly when approached for the evening assessment but suddenly stated, "I'm mad at myself" but could not elaborate further. She then blurted out, "I just had 32 puppies. I had sex with Satan" She stated that she believes she will be discharged on the 31 of July and will live with her brother and her father. She was able to state accurately the date. She stated her mood was good and her affect was congruent to that. She denies that she is having psychotic symptoms. She denies feeling anxious or depressed. She denied any thoughts to harm herself or others. She has not had to be redirected from inappropriate behaviors but she does present as disorganized and delusional. She denies that she has a mental illness. She was medication compliant. She stated that she showers every day and she did appear clean but her hair appeared to be uncombed. She remains on the 5269 and presents as gravely disabled.
[2021-07-14 07:45] VITALS: BP 125/78
[2021-07-14] MEDS: risperiDONE 0.5mg tablet PO SCH (07:55)
[2021-07-14] MEDS: OLANZapine 2.5MG tablet PO SCH (07:55)
--- NOTE | 2021-07-14 08:41 | NUR ---
DISCHARGE PLAN Called Jean Paul's grandmother, Sheree (ph# [phone]), to discuss her discharge. She reported Jean Paul can return to her home and she will try to work with her to change her [facility] to [facility]. She reported a family member can pick her up after 2:30 today if she gets discharged today. Called [facility] to schedule follow up. Clinical Technologist will call and let Sheree know if Jean Paul is going to get discharged today. VON León
[2021-07-14] MEDS: hydrOXYzine 25 MG tablet PO PRN (09:54)
[2021-07-14] MEDS ORDERED: OLAN5TAB75 PO (10:10)
[2021-07-14] MEDS ORDERED: NICO-907 BC (10:10)
[2021-07-14] MEDS ORDERED: RISP2TAB85 PO (10:10)
[2021-07-14] MEDS ORDERED: OLAN10TA21 PO (10:10)
[2021-07-14] MEDS: OLANZAPINE 5 MG TABLET PO PRN (11:34)
[2021-07-14] MEDS: acetaminophen 325mg tablet PO PRN (11:35)
--- NOTE | 2021-07-14 14:15 | NUR ---
DISCHARGE NOTE: Pt was discharged home. Her sister came and picked her up. She ambulated off the unit accompanied by PCT, all belongings were returned. Pt expressed understanding of discharge instructions and follow up care. Rx's were electronically sent to the [facility] on [facility]. PCT handed pt's discharge packet to her sister.
== END 2021-07-14 14:13 | disposition home or self-care (01) | DRG 750 ==
LOC: ER 11:43 → ADULT MH 06-16 09:45
PROVIDERS: ADMIT Psychiatry & Neurology Psychiatry; ATTEND Psychiatry & Neurology Psychiatry
DX: F20.9 Schizophrenia, unspecified (principal); F11.90 Opioid use, unspecified, uncomplicated; F15.159 Other stimulant abuse with stimulant-induced psychotic disorder, unspecified; F12.90 Cannabis use, unspecified, uncomplicated; Z20.822 Contact with and (suspected) exposure to COVID-19; F31.9 Bipolar disorder, unspecified; F17.210 Nicotine dependence, cigarettes, uncomplicated; Z88.2 Allergy status to sulfonamides; Z88.1 Allergy status to other antibiotic agents; Z88.8 Allergy status to other drugs, medicaments and biological substances; Z71.6 Tobacco abuse counseling
CPT/HCPCS: 36415; 80053; 80061; 80305; 80320; 81001; 81025; 84443; 85025; 87081; 87635; 96372; 99285; C9803; J1200; J2060; Q0163; Q0177

== ENCOUNTER 2021-09-18 00:01 | Emergency (ER) | payer MEDICAID ==
[~2021-09-18] VITALS: Ht 172.7 cm; Wt 65.0 kg
[~2021-09-18 00:01] MED LIST changes: -ARIP20TA4 PO; -GUAI1TBM19 PO; -LORA10TA61 PO; +NICO-907 BC; +OLAN10TA21 PO; +OLAN5TAB75 PO; -PALI234D IM; +RISP2TAB85 PO
[2021-09-18] MEDS ORDERED: LIDOcaine 1% W/epiNEPHrine 1:100,000 20ml vial SQ ONE (00:10)
[2021-09-18] MEDS ORDERED: DOXYCYCLINE 100MG CAPSULE PO STA (00:44)
[2021-09-18] MEDS ORDERED: OLANZapine 5mg rapidly disint. tablet PO ONE (00:45)
[2021-09-18] MEDS ORDERED: TETanus/Pertussis (Acell)/Diphther VAC/PF (Tdap-Adult) 0.5ml syringe IMVAC ONE (00:45)
[2021-09-18] MEDS ORDERED: LORazepam 2 mg/ml vial IM ONE ×2 (01:45→02:45)
[2021-09-18] MEDS ORDERED: diphenhydrAMINE 50 mg/ml inj IM ONE (01:45)
[2021-09-18 01:56] LABS: BASOPHILS # (AUTO) 0.1 X10'3 (0-0.2); BASOPHILS % (AUTO) 0.4 % (0-1); EOSINOPHILS # (AUTO) 0.2 X10'3 (0-0.9); HEMOGLOBIN 13.3 g/dl (12.0-16.0); LYMPHOCYTES # (AUTO) 2.3 X10'3 (1.1-4.8); LYMPHOCYTES % (AUTO) 13.7 % (21-51); MEAN CORPUSCULAR HEMOGLOBIN 27.5 PG (27.0-31.0); MEAN CORPUSCULAR HGB CONC 33.3 g/dL (33.0-36.5); MEAN CORPUSCULAR VOLUME 82.7 FL (78-98); MEAN PLATELET VOLUME 8.2 FL (7.4-10.4); MONOCYTES # (AUTO) 1.7 X10'3 (0-0.9); MONOCYTES % (AUTO) 10.5 % (2-12); NEUTROPHILS # (AUTO) 12.4 X10'3 (1.8-7.7); NEUTROPHILS % (AUTO) 74.4 % (42-75); PLATELET COUNT 352 X10'3 (140-440); RED BLOOD COUNT 4.83 X10'6 (4.20-5.60); RED CELL DISTRIBUTION WIDTH 15.1 % (11.5-14.5); WHITE BLOOD COUNT 16.7 X10'3 (4.5-11.0)
[2021-09-18 02:06] LABS: ALANINE AMINOTRANSFERASE 20 U/L (12-78); ALBUMIN 3.8 G/DL (3.4-5.0); ALKALINE PHOSPHATASE 82 IU/L (46-116); ANION GAP 11 (8-16); ASPARTATE AMINO TRANSFERASE 27 U/L (10-37); BILIRUBIN,TOTAL 0.5 MG/DL (0.1-1.0); BLOOD UREA NITROGEN 10 MG/DL (7-18); BUN/CREATININE RATIO 10.8 (6.6-38.0); CALCIUM 8.8 MG/DL (8.5-10.1); CHLORIDE 106 MMOL/L (99-107); CREATININE 0.93 MG/DL (0.40-0.90); ETHANOL < 0.010 GM/DL (0.0-0.010); GLUCOSE 89 MG/DL (70-104); SODIUM 142 MMOL/L (135-145); TOTAL CARBON DIOXIDE 24.8 MMOL/L (24-32); TOTAL PROTEIN 7.6 G/DL (6.4-8.2); eGFR 72 ML/MIN
[2021-09-18 02:07] LABS: POTASSIUM 3.9 MMOL/L (3.5-5.1)
[2021-09-18 03:22] LABS: URINE HCG NEGATIVE (NEG)
[2021-09-18 03:36] LABS: URINE AMPHETAMINE SCREEN POSITIVE (Neg); URINE BARBITUATE SCREEN NEGATIVE (Neg); URINE BENZODIAZEPINES SCREEN NEGATIVE (Neg); URINE CANNABINOID SCREEN POSITIVE (Neg); URINE COCAINE SCREEN NEGATIVE (Neg); URINE METHADONE SCREEN NEGATIVE (Neg); URINE OPIATE SCREEN NEGATIVE (Neg); URINE PHENCYCLIDINE SCREEN NEGATIVE (Neg)
[2021-09-18 05:34] VITALS: BP 146/99
== END 2021-09-18 05:36 ==
LOC: ER 00:02
DX: S81.812A Laceration without foreign body, left lower leg, initial encounter (principal); S81.811A Laceration without foreign body, right lower leg, initial encounter; S71.111A Laceration without foreign body, right thigh, initial encounter; S81.011A Laceration without foreign body, right knee, initial encounter; S71.112A Laceration without foreign body, left thigh, initial encounter; F15.129 Other stimulant abuse with intoxication, unspecified; F20.9 Schizophrenia, unspecified; Z88.2 Allergy status to sulfonamides; Z88.1 Allergy status to other antibiotic agents; Z79.899 Other long term (current) drug therapy; W54.0XXA Bitten by dog, initial encounter; Y93.89 Activity, other specified; Y92.89 Other specified places as the place of occurrence of the external cause; Y99.8 Other external cause status
CPT/HCPCS: 12001; 36415; 80053; 80305; 80320; 81025; 85025; 90471; 90715; 96372; 99284; J1200; J2060; 12031

== ENCOUNTER 2021-10-14 11:56 | Emergency (ER) | payer MEDICAID ==
--- NOTE | 2021-10-14 12:02 | NUR ---
"I DON'T WANT TO BE SEEN", PT LEFT WITH FAMILY
== END 2021-10-14 12:02 | disposition left against medical advice (07) ==
LOC: ER 11:57
DX: B99.9 Unspecified infectious disease (principal); Z53.21 Procedure and treatment not carried out due to patient leaving prior to being seen by health care provider

== ENCOUNTER 2022-11-27 14:21 | Emergency (ER) | payer MEDICAID ==
[~2022-11-27] VITALS: Ht 165.1 cm; Wt 61.0 kg
[2022-11-27 15:00] LABS: CLARITY,URINE CLEAR (Clear); COLOR,URINE YELLOW (Yellow); GLUCOSE, URINE NEGATIVE (Neg); KETONES,URINE TRACE mg/dl (Neg); LEUKOCYTE ESTERASE ,URINE NEGATIVE (Neg); NITRITES, URINE NEGATIVE (Neg); OCCULT BLOOD,URINE NEGATIVE (Neg); PROTEIN,URINE 30 mg/dl (Neg); UROBILINOGEN,URINE 0.2 E.U/dL (0.2-1.0)
[2022-11-27 15:01] LABS: URINE HCG NEGATIVE (NEG)
[2022-11-27 15:02] LABS: UA COLLECTION TYPE CLN CATCH MIDSTREAM
[2022-11-27 15:06] LABS: BACTERIA,URINE 1+ /HPF (Neg); MUCUS STRANDS MODERATE /LPF (Neg); RBC,URINE NONE SEEN /HPF (0-2); SQUAMOUS EPITHELIAL CELL,UR MANY /LPF (FEW)
[2022-11-27 15:15] LABS: URINE AMPHETAMINE SCREEN NEGATIVE (Neg); URINE BARBITUATE SCREEN NEGATIVE (Neg); URINE BENZODIAZEPINES SCREEN NEGATIVE (Neg); URINE CANNABINOID SCREEN POSITIVE (Neg); URINE COCAINE SCREEN NEGATIVE (Neg); URINE METHADONE SCREEN NEGATIVE (Neg); URINE OPIATE SCREEN NEGATIVE (Neg); URINE PHENCYCLIDINE SCREEN NEGATIVE (Neg)
[2022-11-27 15:18] LABS: BASOPHILS % (AUTO) 0.4 % (0-1); EOSINOPHILS # (AUTO) 0.1 X10'3 (0-0.9); EOSINOPHILS % (AUTO) 1.6 % (0-6); HEMATOCRIT 40.4 % (35.0-45.0); HEMOGLOBIN 13.1 g/dl (12.0-16.0); LYMPHOCYTES # (AUTO) 2.9 X10'3 (1.1-4.8); LYMPHOCYTES % (AUTO) 33.1 % (21-51); MEAN CORPUSCULAR HEMOGLOBIN 27.4 PG (27.0-31.0); MEAN CORPUSCULAR HGB CONC 32.4 g/dL (33.0-36.5); MEAN CORPUSCULAR VOLUME 84.6 FL (78-98); MEAN PLATELET VOLUME 9.2 FL (7.4-10.4); MONOCYTES % (AUTO) 11.1 % (2-12); NEUTROPHILS # (AUTO) 4.7 X10'3 (1.8-7.7); NEUTROPHILS % (AUTO) 53.8 % (42-75); PLATELET COUNT 340 X10'3 (140-440); RED BLOOD COUNT 4.78 X10'6 (4.20-5.60); RED CELL DISTRIBUTION WIDTH 18.8 % (11.5-14.5); WHITE BLOOD COUNT 8.8 X10'3 (4.5-11.0)
[2022-11-27 15:31] LABS: ALANINE AMINOTRANSFERASE 18 U/L (12-78); ALBUMIN 4.1 G/DL (3.4-5.0); ALBUMIN/GLOBULIN RATIO 1.2 (1.1-1.5); ALKALINE PHOSPHATASE 70 IU/L (46-116); ANION GAP 10 (8-16); ASPARTATE AMINO TRANSFERASE 17 U/L (10-37); BILIRUBIN,TOTAL 0.4 MG/DL (0.1-1.0); BLOOD UREA NITROGEN 11 MG/DL (7-18); BUN/CREATININE RATIO 15.1 (10.0-20.0); CALCIUM 9.1 MG/DL (8.5-10.1); CHLORIDE 105 MMOL/L (99-107); CREATININE 0.73 MG/DL (0.40-0.90); GLUCOSE 84 MG/DL (70-104); POTASSIUM 3.8 MMOL/L (3.5-5.1); SODIUM 141 MMOL/L (135-145); TOTAL CARBON DIOXIDE 26.4 MMOL/L (24-32); TOTAL PROTEIN 7.5 G/DL (6.4-8.2); eGFR > 90 ML/MIN
[2022-11-27 15:41] LABS: ETHANOL < 0.010 GM/DL (0.0-0.010)
--- NOTE | 2022-11-27 16:19 | NUR ---
RN gave patient a snack. Patient advised RN that she should "contact Simone Mccall and get it from him." Patient stated her baby is one day old. Continue to monitor.
--- NOTE | 2022-11-27 16:43 | NUR ---
Gave patient the T.V. No distress observed. Continue to monitor.
--- NOTE | 2022-11-27 17:05 | NUR ---
Faxed Packet to [facility].
--- NOTE | 2022-11-27 17:10 | NUR ---
Patient approached the nurses station stating, "I am discharging now". She then proceeded to walk toward the exit in an attempt to leave. Staff intercepted patient and escorted her back to her room. She was noted cursing at staff calling everyone "nigrs" and threatening to "beat your ass".
[2022-11-27] MEDS ORDERED: LORazepam 2 mg/ml vial ONE (17:13)
[2022-11-27] MEDS ORDERED: haloperidol lactate 5mg/ml inj ONE (17:13)
[2022-11-27] MEDS ORDERED: diphenhydrAMINE 50 mg/ml inj ONE (17:13)
--- NOTE | 2022-11-27 17:21 | NUR ---
Patient cussing and calling staff "nigers". "Your ass is going to ". Threatening staff and becoming violent. Security called. RN gave patient I.M. injections. Patient continues to yell and threaten. "Kick rock bitch!". Continue to monitor.
--- NOTE | 2022-11-27 17:40 | NUR ---
Pt refused all vital signs stating "You already took my blood pressure so fuck off bitch." Nurse Nikki Valenzuela alerted to refusal. Will continue to monitor and will reattempt b
--- NOTE | 2022-11-27 17:46 | NUR ---
Patient yelling and wanting to leave. Also yelling for food. RN explained dinner comes in about 15 minutes. Continue to monitor.
[2022-11-27] MEDS: OLANZapine 5mg rapidly disint. tablet PO SCH (20:00)
--- NOTE | 2022-11-27 20:43 | NUR ---
Awake at shift change yelled obscenities at [facility] person. Is sleeping at this time. Has scheduled Zyprexa but received IM medication on day shift so will be allowed to sleep.
--- NOTE | 2022-11-27 22:49 | NUR ---
Sleeping resp even and unlabored.
--- NOTE | 2022-11-28 01:08 | NUR ---
Pt continues to sleep resp even and unlabored.
--- NOTE | 2022-11-28 03:06 | NUR ---
Pt continues to sleep resp even and unlabored.
--- NOTE | 2022-11-28 05:09 | NUR ---
Pt woke up yelling that she needed Dinner because she just had a baby. Explained it was almost time for breakfast. Offered a warm blanket Pt said "I don't want nothing from you don't Fucking touch me." [place] left where pt can reach it. At this time she appears to have gone back to sleep.
--- NOTE | 2022-11-28 06:48 | NUR ---
Patient sleeping. No distress observed. Continue to monitor.
--- NOTE | 2022-11-28 07:51 | NUR ---
Patient up to BR, steady gait. No distress observed. Continue to monitor.
--- NOTE | 2022-11-28 08:19 | NUR ---
Pt asked for the TV so this radio script writer put TV in pt's room. She told me "thank you" and said "You're beautiful!" Pt seems much happier at the moment compared to yesterday; as she was calling me the N word and to F off. Pt is quietly watching TV now.
[2022-11-28] MEDS: OLANZapine 5mg rapidly disint. tablet PO SCH (08:26)
--- NOTE | 2022-11-28 10:17 | NUR ---
Patient sleeping. No distress observed. Continue to monitor.
--- NOTE | 2022-11-28 12:09 | NUR ---
Patient placed the lid back on her lunch and went back to sleep. Possibly will eat at a later time. Continue to monitor.
--- NOTE | 2022-11-28 14:05 | NUR ---
Patient continues to sleep. No distress observed. Continue to monitor.
[2022-11-28 15:06] VITALS: BP 111/61
--- NOTE | 2022-11-28 15:42 | NUR ---
Patient accepted at [facility]. Per [facility], patient will be picked up soon. Tech got patient dressed and gave patient a good pair of shoes from the back (with her belongings). Continue to monitor.
== END 2022-11-28 16:50 ==
LOC: ER 14:21
DX: F25.9 Schizoaffective disorder, unspecified (principal); Z20.822 Contact with and (suspected) exposure to COVID-19; Z73.6 Limitation of activities due to disability; F31.9 Bipolar disorder, unspecified; F12.90 Cannabis use, unspecified, uncomplicated; Z88.2 Allergy status to sulfonamides; Z88.1 Allergy status to other antibiotic agents; Z88.8 Allergy status to other drugs, medicaments and biological substances
CPT/HCPCS: 80053; 80305; 80320; 81001; 81025; 84443; 85025; 87811; 96372; 99285; J1200; J1630; J2060